=== PATIENT | male | born 1940 | race Caucasian/White ===

== ENCOUNTER 2017-10-22 12:48 | Inpatient (IN) | payer MEDICARE ==
[~2017-10-22 12:48] MED LIST: ISOVUE-370 76%-LOCM 1 ML ONE
[2017-10-22 13:23] LABS: #Eosinphils 0.2 thou/uL (0.0-0.7); #Lymphocytes 0.8 thou/uL (1.20-3.40); #Monocytes 0.4 thou/uL (0.11-0.59); #Neutrophils 5.2 thou/uL (1.40-6.50); %Basophils 0.2 % (0.0-1.0); %Eosinophils 2.9 % (0.0-10.0); %Lymphocytes 12.6 % (21.0-51.0); %Monocytes 5.7 % (0.0-10.0); Hematocrit 41.1 % (42.0-52.0); Mean Platelet Volume 7.8 fL (7.4-10.4); Red Blood Cell (RBC) Count 4.26 mill/uL (4.70-6.10); White Blood Cell (WBC) Count 6.6 thou/uL (4.8-10.8)
[2017-10-22 13:46] LABS: ALT (SGPT) 13 U/L (8-55); AST (SGOT) 14 U/L (5-34); Alkaline Phosphatase 58 U/L (40-150); Anion Gap 11 mmol/L (10-20); BUN (Urea Nitrogen) 13 mg/dL (8.4-25.7); Bilirubin, Total 0.7 mg/dL (0.2-1.2); Calc. Creatinine Clearance 0 mL/min (70-130); Calcium 9.5 mg/dL (7.8-10.44); Carbon Dioxide 29 mmol/L (23-31); Chloride 105 mmol/L (98-107); Estimated GFR-MDRD 55; Globulin 2.8 g/dL (2.4-3.5); Protein, Total 7.1 g/dL (5.8-8.1)
[2017-10-22 13:47] LABS: Troponin I 0.022 ng/mL (< 0.028)
--- NOTE | 2017-10-22 15:05 | CT ---
CT CHEST WITH CONTRAST: HISTORY: COPD, dyspnea. COMPARISON: Chest radiograph same day. FINDINGS: Left lung apex has a soft tissue density with associated soft tissue calcification involving the pleu ra. There appears to be some invasion within the extrapleural fat. Overall, this mass-like area ly sures 5 x 2.6 x 2.4 cm. In the right lung base abutting a calcified pleural plaque is an enhancing m ass extending to the hilum. This measures 2.2 x 1.9 x approximately 10 cm and extends into the poste rior and medial basal right lower lobe bronchi. There are severe emphysematous changes. There are s cattered calcified pleural plaques throughout the pleural spaces. Cholelithiasis is present. Calcified splenic granulomas. Calcified granulomas of the hilum. No pericardial effusion. IMPRESSION: 1. There is a 2.2 x 2 x 10 cm mass which is elongated in the craniocaudad plane abutting a calcified pleural plaque in the right lower lobe. This extends into the right lower lobe, processing lead and medial b braxton segments. This is concerning for a malignant process such as mesothelioma. 2. Confluent soft tissue mass in the left lung apex measuring 5 x 2.6 x 2.4 cm invading into the ext rapleural fat also concerning for malignancy. 3. Focal spiculated mass within the anterior segment left upper lobe relating to mediastinal pleura measuring 1.6 x 1.4 x 2 cm also concerning for malignancy versus scar. A PET CT would be beneficial in this patient. There are areas of scarring throughout both lower lobes. 4. Cholelithiasis. 5. Calcified splenic granulomas. 6. Asbestos-related pleural disease. CODE T POS: DANIEL
[2017-10-22] MEDS ORDERED: Water For Inject, Bacteriostat 30 ML ONE (15:08)
[2017-10-22] MEDS ORDERED: methylPREDNISolone Sod Succ/PF 125 MG/2 ML VIAL ONE (15:08)
[2017-10-22 16:17] LABS: Troponin I 0.014 ng/mL (< 0.028)
[2017-10-22] MEDS ORDERED: Acetaminophen 325 MG TAB PO PRN ×2 (17:01→17:06)
[2017-10-22] MEDS ORDERED: HYDROcodone/Acetaminophen 5/325 mg Tablet PO PRN ×3 (17:01→17:06)
[2017-10-22] MEDS ORDERED: hydrALAZINE 20 MG/ML VIAL SLOW IVP PRN (17:06)
[2017-10-22] MEDS ORDERED: Ondansetron HCl/PF 4 MG/2 ML Vial IVP PRN (17:06)
[2017-10-22] MEDS ORDERED: HumaLOG 300 UNITS/3 ML VIAL SC PRN ×2 (17:06)
[2017-10-22] MEDS ORDERED: Dextrose 50% Abboject 50 ML SYRINGE SLOW IVP PRN (17:06)
[2017-10-22] MEDS ORDERED: Benzonatate 100 MG CAP PO PRN (17:06)
[2017-10-22] MEDS ORDERED: Dextrose 5% in Water 1,000 ML IV PRN (17:06)
[2017-10-22 17:09] VITALS: BMI 21.0
[2017-10-22] MEDS: Piperacillin/Tazobactam 3.375 GM in Sodium Chloride 0.9% 100 ML IVPB SCH ×2 (18:35→23:55)
[2017-10-22] MEDS: Albuterol Sulfate 2.5 mg/3 ml Neb NEB SCH ×2 (19:14→22:40)
--- NOTE | 2017-10-22 19:46 | HP ---
PRIMARY CARE PHYSICIAN: Dr. Raines. CHIEF COMPLAINT: Shortness of breath. HISTORY OF PRESENT ILLNESS: Mr. Quick is a very pleasant 76-year-old gentleman, who has a hist ory of chronic respiratory failure with chronic obstructive pulmonary disease. He also has a history of asbestosis, which he says was diagnosed at least since back in 2001. He says he was in his usual state of health until about 2 months ago. He says that he is originally from [place] and he was having increasing shortness of breath and please note he says he normally has some degree of shortnes s of breath all the time, but this time the shortness of breath got extremely bad and he went to the [facility] in [place] where he was diagnosed with pneumonia. He was treated with Leva stephanie and says that he stayed in the hospital several days and then was eventually transitioned to an inpatient rehab center and then back home. He says his symptoms did improve somewhat and he was able to walk some. His cousin who is at the bedside decided to bring him home with her as he is single a nd to take better care of him and has since relocated him in our area. She noticed that in the past few days, he has been becoming increasingly more short of breath and today he was getting ready to tafoya ve a regular appointment with Dr. Raines when he was barely able to dress himself, he said he put one foot in his jeans and was extremely short of breath and had to take a rest and then put the other fo ot in and was in short of breath. He barely could make it to the office. When he arrived, Dr. Ej zepeda looked at him and said that he needed to come to the emergency room. In the ER, he was evaluated a nd he had a CT scan of his chest obtained as well as a chest x-ray and it was noted that he has a mas s in the left upper lobe as well as some areas abutting the extrapleural fat, which was concerning fo r malignancy. There was also an elongated area on the right lower lobe as well and some asbestosis r elated pleural disease. The patient says that he was aware of some area in the left upper lobe, but says that they had been "following this for sometime." He says he believes it has been for the past 4 years. When asked if it ever had been biopsied, he says no. When asked if it was cancer, the lin ent says he was not sure, he says "they never told me anything about it" and says that he has been tr yadira to request the records from [place], but has not received them yet. The other complaint is t hat he noticed some pain in his left upper shoulder and into his neck and again occasional cough, whi ch is primarily nonproductive as well as the extreme weakness. REVIEW OF SYSTEMS: Constitutional: He has had some chills, but no fever. He says his appetite has been fairly good. When asked about his weight, he says his weight goes "up and down." HEENT: He de nies any headache, no dizziness, no visual changes, no sore throat, no rhinorrhea, no neck pain, no a denopathy. Pulmonary: As the history of present illness. Cardiovascular: He denies any chest pain . He says he has a history of irregular heartbeat and was recently placed on a new "blood thinner" f or this. No PND, no orthopnea. He has noted some lower extremity edema. Gastrointestinal: No abdo larry pain, no nausea, no vomiting, no change in bowels. Genitourinary: He does have some urinary f requency. He is on Flomax for this. Musculoskeletal: He does complain of some joint pains primaril y in his knees, etc. No muscle weakness. Skin/Integument: No skin changes and no rash. Psychiatri c: No symptoms of anxiety or depression. PAST MEDICAL HISTORY: Significant for chronic respiratory failure secondary to chronic obstructive p ulmonary disease; history of asbestosis; BPH; chronic anemia; diabetes mellitus, type 2, which he say s is diet controlled; as well as atrial fibrillation. PAST SURGICAL HISTORY: Negative. ALLERGIES: NEXIUM, which causes itching; WASP and BEE STINGS as well as NIACIN. SOCIAL HISTORY: He is . He has 1 biological child and he says he has sinus in his 50s, but he says he has since disowned his child and does not claim his child anymore. He says that his surro gate decision maker is his cousin and her name is Ladonna Rojas. He is . He is a former s moker. He quit a year and a half ago and he smoked for over 50 years for a pack and a half a day. Olivia lynch denies any alcohol use. FAMILY HISTORY: Significant for liver cancer in his mother. Father has coronary artery disease. Br other had liver failure. CURRENT MEDICATIONS: Include aspirin 325 mg daily, digoxin 0.125 mg daily, furosemide 20 mg daily, p otassium chloride 10 mEq a day, metoprolol 25 mg daily, pravastatin 40 mg daily, Flomax 0.4 mg daily, Advair 250/50 one inhalation daily, Combivent inhaler, Spiriva, Flonase nasal spray and albuterol ne bs. He says he is on a blood thinner, he calls sabrina, but I suspect it might be Xarelto. He does get his prescriptions at [facility] pharmacy and we will call to clarify this. PHYSICAL EXAMINATION: GENERAL: He is alert and oriented. He appears to be in no acute distress. VITAL SIGNS: Stable. HEENT: Pupils are equal, round, and reactive. Extraocular muscles are intact. His sclerae are anic teric. Throat: There is no erythema, no exudates. He is edentulous. No oral lesions. NECK: There is no adenopathy, no bruits. LUNGS: He has got some scattered wheezing, but no rales and some decrease in air movement. CARDIOVASCULAR: He has a normal S1 and S2. No S3 or S4. No murmurs, clicks, no rubs. ABDOMEN: Soft, it is nontender, nondistended. Positive for bowel sounds. No rebound, no guarding. EXTREMITIES: There is no edema. NEUROLOGICALLY: The exam is nonfocal. LABORATORY DATA AND X-RAYS: White blood cell count 6.6, hemoglobin 13.9, hematocrit is 41.1, platele t count is 175. Sodium 141, potassium 3.8, chloride is 105, CO2 is 29, BUN of 13, creatinine 1.28, g lucose is 102, natriuretic peptide 246. He had a chest x-ray that had some changes associated with c hronic obstructive pulmonary disease, some pleural thickening and thickening of the fissures, some tafoya zy opacity in the left upper lobe and this is by my reading. He also had a CT scan of the chest, [facility] demonstrated a left lung apex as a soft tissue density associated with some tissue calcifications along the pleura, this is a mass-like area, measuring 5.25 x 2.6 x 2.4 cm, an area in the right base with the pleural plaque enhancing mass. There is some calcified splenic granuloma and asbestosis rel ated pleural disease. ASSESSMENT AND PLAN: 1. This is a 76-year-old gentleman who presents to the emergency room with progressive shortness of breath. He has a history of COPD, which appears to be fairly advanced. He has been having worsening pulmonary symptoms. I suspect he has a pulmonary malignancy. It is unclear whether or not this has been evaluated in the past, appears that he has not had any specific treatment. According to the adams gonzalez's description; however, this needs to be further clarified. He will be admitted. We will scott t this as a post-obstructive pneumonia and place him on empiric antibiotics. Pulmonary consult will be obtained. We will also make a request to get his records from the [facility] in [facility] [place]: 2. History of atrial fibrillation. We also need to clarify the blood thinner the patient is taking, again I suspect this is Xarelto and restart this as well as his medication for rate control includin g the metoprolol and digoxin. 3. Chronic obstructive pulmonary disease. We will continue his usual medications including Advair, Spiriva, and Combivent and place him on p.r.n. DuoNeb. 4. For diabetes mellitus, we will place him on a sliding scale insulin.
[2017-10-22] MEDS: Aspirin 325 MG TAB PO SCH (20:36)
[2017-10-22] MEDS: Docusate 100 MG CAP PO SCH (20:37)
[2017-10-22] MEDS: Famotidine 20 MG TAB PO SCH (20:37)
[2017-10-22] MEDS: Pravastatin Sodium 40 MG TAB PO SCH (20:37)
[2017-10-22] MEDS: Rivaroxaban 10 MG TAB PO SCH (20:38)
[2017-10-23] MEDS: Albuterol Sulfate 2.5 mg/3 ml Neb NEB SCH (02:18)
[2017-10-23 04:24] LABS: #Lymphocytes 0.3 thou/uL (1.20-3.40); #Monocytes 0.1 thou/uL (0.11-0.59); #Neutrophils 6.5 thou/uL (1.40-6.50); %Basophils 0.7 % (0.0-1.0); %Eosinophils 0.2 % (0.0-10.0); %Lymphocytes 4.2 % (21.0-51.0); %Monocytes 1.7 % (0.0-10.0); Hematocrit 37.1 % (42.0-52.0); Mean Platelet Volume 7.7 fL (7.4-10.4); Red Blood Cell (RBC) Count 3.83 mill/uL (4.70-6.10); White Blood Cell (WBC) Count 6.9 thou/uL (4.8-10.8)
[2017-10-23 04:49] LABS: Anion Gap 16 mmol/L (10-20); BUN (Urea Nitrogen) 19 mg/dL (8.4-25.7); Calc. Creatinine Clearance 37 mL/min (70-130); Calcium 9.3 mg/dL (7.8-10.44); Carbon Dioxide 24 mmol/L (23-31); Chloride 105 mmol/L (98-107); Estimated GFR-MDRD 43
[2017-10-23] MEDS: Piperacillin/Tazobactam 3.375 GM in Sodium Chloride 0.9% 100 ML IVPB SCH ×3 (05:46→17:55)
[2017-10-23] MEDS: Mometasone/Formoterol 120 PUFF INHALER INH SCH (06:27)
[2017-10-23] MEDS ORDERED: Spiriva 18 MCG CAP (Box of 5 Caps) INH SCH (07:00)
[2017-10-23] MEDS: Famotidine 20 MG TAB PO SCH ×2 (08:26→20:51)
[2017-10-23] MEDS: Digoxin 0.125 MG TAB PO SCH (08:26)
[2017-10-23] MEDS: Potassium Chloride 10 MEQ TAB PO SCH (08:26)
[2017-10-23] MEDS: Docusate 100 MG CAP PO SCH ×2 (08:26→20:50)
[2017-10-23] MEDS: Furosemide 20 MG TAB PO SCH (08:26)
[2017-10-23] MEDS: Metoprolol Tartrate 25 MG TAB PO SCH (08:26)
[2017-10-23] MEDS: Tamsulosin HCl 0.4 MG CAP PO SCH (08:26)
--- NOTE | 2017-10-23 09:30 | PDOC.PN ---
- Subjective Encounter Start Date: 10/23/17 Encounter Start Time: 09:27 Mr. Quick was seen today in follow-up. He says he is breathing a little better. He walked across the room today. He continues to have pain in his left upper chest. - Objective Resuscitation Status: Resuscitation Status DNR:Do Not Resuscitate MAR Reviewed: Yes Vital Signs & Weight: Vital Signs (12 hours) Temp Pulse Resp BP Pulse Ox 10/23/17 08:26 88 10/23/17 08:00 97.8 F 88 20 98 10/23/17 07:05 97.8 F 101 H 20 105/56 L 98 10/23/17 06:25 82 16 98 10/23/17 03:53 97.7 F 94 16 105/55 L 95 10/23/17 02:17 88 16 99 10/22/17 23:53 97.7 F 95 20 107/59 L 92 L 10/22/17 22:40 84 16 98 Weight Weight 138 lb 11.2 oz I&O: 10/22/17 10/23/17 10/24/17 06:59 06:59 06:59 Intake Total 200 Output Total 350 Balance -150 Result Diagrams: 10/23/17 03:30 10/23/17 03:30 Additional Labs: Accuchecks 10/23/17 10/22/17 05:31 20:07 POC Glucose 194 H 217 H Phys Exam - Physical Examination HEENT: PERRLA Respiratory: no wheezing, no rales, no rhonchi, clear to auscultation bilateral Cardiovascular: RRR, no significant murmur Gastrointestinal: soft, non-tender, positive bowel sounds Musculoskeletal: no edema Dx/Plan (1) Lung mass Code(s): R91.8 - OTHER NONSPECIFIC ABNORMAL FINDING OF LUNG FIELD Status: Acute (2) Pulmonary asbestosis Code(s): J61 - PNEUMOCONIOSIS DUE TO ASBESTOS AND OTHER MINERAL FIBERS Status : Acute (3) Acute and chronic respiratory failure Code(s): J96.20 - ACUTE AND CHR RESP FAILURE, UNSP W HYPOXIA OR HYPERCAPNIA Status: Acute (4) Diabetes mellitus type 2 in nonobese Code(s): E11.9 - TYPE 2 DIABETES MELLITUS WITHOUT COMPLICATIONS Status: Acute (5) Atrial fibrillation Code(s): I48.91 - UNSPECIFIED ATRIAL FIBRILLATION Status: Acute - Plan * acute on chronic respiratory failure- improved overnight- ? superimposed pneumonia- await Pulmonary evaluation * Records from [facility] in [place] have been requested * DM- blood glucose is trending up- continue SSI * AFIB- his heart rate has been stable- continue Xarelto for CVA prevention.
[2017-10-23] MEDS: Aspirin 325 MG TAB PO SCH (20:50)
[2017-10-23] MEDS: predniSONE 20 MG TAB PO SCH (20:51)
[2017-10-23] MEDS: Rivaroxaban 10 MG TAB PO SCH (20:51)
[2017-10-23] MEDS: Pravastatin Sodium 40 MG TAB PO SCH (20:51)
--- NOTE | 2017-10-23 21:44 | CON ---
DATE OF CONSULTATION: 10/23/2017 HISTORY OF PRESENT ILLNESS: Dwayne Quick is a 76-year-old pleasant gentleman who wa s admitted to the hospital with shortness of breath. Longstanding history of tobacco abuse, smoked up to a pack a day for at least 50 years. He sees a [facility] physician over here with a diagnosis of COPD and apparently coronary artery disease. He says now on most days he can barely walk even half a block without getting markedly short of breat h, history of previous pneumonia with no history of TB or asthma. He saw some physician in [facility] where he said he had pneumonia. PAST MEDICAL HISTORY: Pertinent for COPD, coronary artery disease, history of asbestos exposure, and diabetes. MEDICATIONS: His list of medicines Spiriva, Flonase, Ventolin, metoprolol 25, Combivent, Flomax 0.4, potassium, Xarelto, Lasix and digoxin. 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 PAST SURGICAL HISTORY: None. ALLERGIES: Presumably NEXIUM. REVIEW OF SYSTEMS: Otherwise, 10-point negative. PHYSICAL EXAMINATION: VITAL SIGNS: Blood pressure 105/58, sats 93%, temperature 97, respirations 18. CHEST: Decreased breath sounds, no wheezing. CARDIAC: Normal S1-S2. No gallops. ABDOMEN: No masses. LABORATORY: White count 6, H and H 12 and 37, platelet count normal. Creatinine 1.57. BNP 247. In fluenza negative. LABORATORY AND X-RAY FINDINGS: I reviewed his chest x-ray which shows a right apical thickening. No nspecific infiltrates in the area of the lingula and some hyperinflation and questionable nodule in t he right base. CAT scan confirmed the above findings, more pronounced on the CT which shows: 1. A 2 x 2 x 10 cm mass along the right lower lobe calcified plaque. 2. Soft tissue mass lung apex 5 x 2.6 extrapleural. 3. A 1.6 x 1.4 mass on the left upper lobe. IMPRESSION: 1. Chronic obstructive pulmonary disease exacerbation. 2. Abnormal CT suggestive of multiple lung masses and pleural thickening. 3. Coronary artery disease. 4. Atrial fibrillation. PLAN: At this stage, nebs, steroids when he is better, discharge home, outpatient followup with a PE T scan. Further recommendations after above. Please note this is a 70-minute time spent with the patient at bedside.
[2017-10-24] MEDS: Piperacillin/Tazobactam 3.375 GM in Sodium Chloride 0.9% 100 ML IVPB SCH ×3 (00:18→12:00)
[2017-10-24 04:36] LABS: Hematocrit 36.7 % (42.0-52.0)
[2017-10-24] MEDS: Mometasone/Formoterol 120 PUFF INHALER INH SCH (06:36)
[2017-10-24] MEDS: predniSONE 20 MG TAB PO SCH ×2 (10:05→20:15)
[2017-10-24] MEDS: Famotidine 20 MG TAB PO SCH ×2 (10:05→20:15)
[2017-10-24] MEDS: Digoxin 0.125 MG TAB PO SCH (10:05)
[2017-10-24] MEDS: Metoprolol Tartrate 25 MG TAB PO SCH (10:06)
[2017-10-24] MEDS: Potassium Chloride 10 MEQ TAB PO SCH (10:06)
[2017-10-24] MEDS: Docusate 100 MG CAP PO SCH ×2 (10:06→20:15)
[2017-10-24] MEDS: Furosemide 20 MG TAB PO SCH (10:06)
[2017-10-24] MEDS: Tamsulosin HCl 0.4 MG CAP PO SCH (10:06)
--- NOTE | 2017-10-24 10:26 | PDOC.PN ---
- Subjective Encounter Start Date: 10/24/17 Encounter Start Time: 10:00 Subjective: breathing better, still exertional sob+ - Objective Resuscitation Status: Resuscitation Status DNR:Do Not Resuscitate MAR Reviewed: Yes Vital Signs & Weight: Vital Signs (12 hours) Temp Pulse Resp BP Pulse Ox 10/24/17 10:05 66 10/24/17 08:03 97.3 F L 66 14 113/59 L 98 10/24/17 08:00 97.3 F L 66 14 98 10/24/17 06:34 82 16 96 10/24/17 01:27 95 10/23/17 23:05 84 16 96 Weight Weight 138 lb 11.2 oz I&O: 10/23/17 10/24/17 10/25/17 06:59 06:59 06:59 Intake Total 200 1440 Output Total 350 1600 Balance -150 -160 Result Diagrams: 10/24/17 03:34 10/24/17 03:34 Additional Labs: Accuchecks 10/24/17 10/23/17 10/23/17 05:27 20:54 16:12 POC Glucose 137 H 135 H 114 H 10/23/17 11:52 POC Glucose 97 Phys Exam - Physical Examination HEENT: PERRLA, moist MMs Neck: no JVD, supple Respiratory: no wheezing, no rales Cardiovascular: RRR, no significant murmur Gastrointestinal: soft, non-tender, positive bowel sounds Musculoskeletal: no edema, pulses present Neurological: non-focal, moves all 4 limbs Psychiatric: A&O x 3 Dx/Plan (1) COPD (chronic obstructive pulmonary disease) Status: Acute Qualifiers: COPD type: COPD with acute exacerbation Qualified Code(s): J44.1 - Chronic obstructive pulmonary disease with (acute) exacerbation (2) Acute and chronic respiratory failure Code(s): J96.20 - ACUTE AND CHR RESP FAILURE, UNSP W HYPOXIA OR HYPERCAPNIA Status: Acute Qualifiers: Respiratory failure complication: hypoxia Qualified Code(s): J96.21 - Acute and chronic respiratory failure with hypoxia (3) Dyslipidemia Code(s): E78.5 - HYPERLIPIDEMIA, UNSPECIFIED Status: Chronic (4) CAD (coronary artery disease) Code(s): I25.10 - ATHSCL HEART DISEASE OF [place] CORONARY ARTERY W/O ANG PCTRS Status: Chronic Qualifiers: Coronary Disease-Associated Artery/Lesion type: [place] artery [place] vs. transplanted heart: [place] heart Associated angina: without angina Qualified Code(s): I25.10 - Atherosclerotic heart disease of [place] coronary artery without angina pectoris (5) Atrial fibrillation Code(s): I48.91 - UNSPECIFIED ATRIAL FIBRILLATION Status: Chronic Qualifiers: Atrial fibrillation type: chronic Qualified Code(s): I48.2 - Chronic atrial fibrillation (6) Diabetes mellitus type 2 in nonobese Code(s): E11.9 - TYPE 2 DIABETES MELLITUS WITHOUT COMPLICATIONS Status: Chronic (7) Lung mass Code(s): R91.8 - OTHER NONSPECIFIC ABNORMAL FINDING OF LUNG FIELD Status: Acute (8) Pulmonary asbestosis Code(s): J61 - PNEUMOCONIOSIS DUE TO ASBESTOS AND OTHER MINERAL FIBERS Status : Chronic - Plan on zosyn -: oral steroids, duonebs -: xarelto for afib -: PT to mobilize pt as tolerated -: dm on diet control * . Review of Systems - Medications/Allergies Allergies/Adverse Reactions: Allergies Allergy/AdvReac Type Severity Reaction Status Date / Time bee pollen Allergy Verified 10/22/17 17:20 esomeprazole [From Nexium] Allergy Verified 10/22/17 17:19 niacin Allergy Verified 10/22/17 17:19 Medications: Current Medications Acetaminophen (Tylenol) 650 mg PO Q4H PRN PRN Reason: Headache/Fever or Pain Hydrocodone Bitart/Acetaminophen (Cozad 5/325) 1 tab PO Q4H PRN PRN Reason: Moderate Pain (4-6) Albuterol/Ipratropium (Duoneb) 3 ml NEB [id number]-IH PRN PRN Reason: SOB &/or Wheezing Last Admin: 10/23/17 02:17 Dose: 3 ml Albuterol/Ipratropium (Duoneb) 3 ml NEB [id number] NEHEMIAH Last Admin: 10/24/17 06:34 Dose: 3 ml Aspirin (Aspirin) 325 mg PO HS NEHEMIAH Last Admin: 10/23/17 20:50 Dose: 325 mg Benzonatate (Tessalon) 100 mg PO Q4H PRN PRN Reason: Cough Dextrose/Water (Dextrose 50%) 25 gm SLOW IVP PRN PRN PRN Reason: Hypoglycemia Digoxin (Lanoxin) 0.125 mg PO DAILY [facility] Last Admin: 10/24/17 10:05 Dose: 0.125 mg Docusate Sodium (Colace) 100 mg PO BID [facility] Last Admin: 10/24/17 10:06 Dose: 100 mg Famotidine (Pepcid) 20 mg PO BID [facility] Last Admin: 10/24/17 10:05 Dose: 20 mg Furosemide (Lasix) 20 mg PO DAILY [facility] Last Admin: 10/24/17 10:06 Dose: 20 mg Glucagon (Glucagon) 1 mg IM PRN PRN PRN Reason: Hypoglycemia Hydralazine HCl (Apresoline) 10 mg SLOW IVP Q4H PRN PRN Reason: Systolic BP > 180 Dextrose/Water (D5w) 1,000 mls @ 0 mls/hr IV .Q0M PRN; As Directed PRN Reason: Hypoglycemia Piperacillin Sod/Tazobactam (Sod 3.375 gm/ Sodium Chloride) 100 mls @ 200 mls/ hr IVPB Q6HR [facility] Last Admin: 10/24/17 05:22 Dose: 100 mls Insulin Human Lispro (Humalog) 0 units SC .MILD SLIDING SCALE PRN PRN Reason: Mild Correctional Scale Last Admin: 10/23/17 06:39 Dose: 2 unit Insulin Human Lispro (Humalog) 0 units SC .BEDTIME SLIDING SC PRN PRN Reason: Bedtime Correctional Scale Last Admin: 10/22/17 20:49 Dose: 2 unit Metoprolol Succinate (Toprol Xl) 25 mg PO DAILY [facility] Last Admin: 10/24/17 10:06 Dose: Not Given Metoprolol Tartrate (Lopressor) 25 mg PO DAILY [facility] Last Admin: 10/24/17 10:06 Dose: 25 mg Mometasone Furoate/Formoterol Fumar (Dulera 200 Mcg/5 Mcg Inhaler) 2 puff INH DAILY-RT [facility] Last Admin: 10/24/17 06:36 Dose: 2 puff Ondansetron HCl (Zofran) 4 mg IVP Q6H PRN PRN Reason: Nausea/Vomiting Potassium Chloride (Klor-Con 10) 10 meq PO DAILY [facility] Last Admin: 10/24/17 10:06 Dose: 10 meq Pravastatin Sodium (Pravachol) 40 mg PO HS [facility] Last Admin: 10/23/17 20:51 Dose: 40 mg Prednisone (Prednisone) 20 mg PO BID NEHEMIAH Last Admin: 10/24/17 10:05 Dose: 20 mg Rivaroxaban (Xarelto) 20 mg PO QPM NEHEMIAH Last Admin: 10/23/17 20:51 Dose: 20 mg Tamsulosin HCl (Flomax) 0.4 mg PO DAILY [facility] Last Admin: 10/24/17 10:06 Dose: 0.4 mg
--- NOTE | 2017-10-24 17:20 | PRG ---
DATE OF SERVICE: 10/24/2017 SUBJECTIVE: Mr. Quick is seen in the room with his brother. His brother is a picker/puller. The patient says he is much better than he was a few days ago. OBJECTIVE: VITAL SIGNS: He is afebrile, heart rate is 66, respiratory rate is 14, oximetry is 98 on 3 liters, b lood pressure 113/59, intake and output is recorded as negative 160 mL. LUNGS: Remarkable for crackles at his lung bases. He is no longer wheezing. HEART: Regular rhythm. ABDOMEN: Soft. LABORATORY DATA: Hemoglobin is 12.2; it was 12.4 yesterday. Creatinine is 1.5 today; it was 1.57 ye sterday. IMPRESSION: 1. Chronic obstructive pulmonary disease exacerbation. 2. ?coexistent pneumonia. 3. ?pulmonary nodule. The CT showed a 2 x 2 x 10 cm mass abutting calcified pleural plaque in the right lower lobe. Dr. Boyer in informed me it would be worked up as an outpatient. He also had a mass in the anterior segment of the left upper lobe; this could be a scar. He appears to be medically stable at this point in time. Hopefully, we can start to simplify medicat ions and get him home by Sweet.
[2017-10-24] MEDS: Pravastatin Sodium 40 MG TAB PO SCH (20:15)
[2017-10-24] MEDS: Amoxicillin/Potassium Clav 875 MG TAB PO SCH (20:15)
[2017-10-24] MEDS: Aspirin 325 MG TAB PO SCH (20:15)
[2017-10-24] MEDS: Rivaroxaban 10 MG TAB PO SCH (20:19)
[2017-10-25] MEDS: Mometasone/Formoterol 120 PUFF INHALER INH SCH (06:44)
[2017-10-25 07:49] VITALS: TEMP 97.6
[2017-10-25] MEDS: Tamsulosin HCl 0.4 MG CAP PO SCH (07:49)
[2017-10-25] MEDS: Potassium Chloride 10 MEQ TAB PO SCH (07:50)
[2017-10-25] MEDS: Furosemide 20 MG TAB PO SCH (07:50)
[2017-10-25] MEDS: Amoxicillin/Potassium Clav 875 MG TAB PO SCH (07:50)
[2017-10-25] MEDS: Famotidine 20 MG TAB PO SCH (07:50)
[2017-10-25] MEDS: predniSONE 20 MG TAB PO SCH (07:50)
[2017-10-25] MEDS: Docusate 100 MG CAP PO SCH (07:50)
[2017-10-25] MEDS: Digoxin 0.125 MG TAB PO SCH (07:51)
--- NOTE | 2017-10-25 11:33 | PDOC.PN ---
- Subjective Encounter Start Date: 10/25/17 Encounter Start Time: 08:00 Subjective: no sob, feels better, says he is amb in room and hallway - Objective Resuscitation Status: Resuscitation Status DNR:Do Not Resuscitate MAR Reviewed: Yes Vital Signs & Weight: Vital Signs (12 hours) Temp Pulse Resp BP Pulse Ox 10/25/17 08:03 97.6 F 62 18 99 10/25/17 07:51 62 10/25/17 07:48 97.6 F 61 18 124/59 L 99 10/25/17 06:45 100 10/25/17 06:43 60 16 100 10/25/17 04:22 98.2 F 72 18 115/56 L 100 10/24/17 23:48 97.5 F L 67 20 94/53 L 96 Weight Weight 138 lb 11.2 oz I&O: 10/24/17 10/25/17 10/26/17 06:59 06:59 06:59 Intake Total 1440 1300 Output Total 1600 2000 Balance -160 -700 Result Diagrams: 10/24/17 03:34 10/24/17 03:34 Additional Labs: Accuchecks 10/25/17 10/24/17 10/24/17 05:54 20:22 15:47 POC Glucose 153 H 151 H 149 H Phys Exam - Physical Examination HEENT: PERRLA, moist MMs Neck: no JVD, supple Respiratory: no wheezing, no rales occ rhonchi+ Cardiovascular: RRR, no significant murmur Gastrointestinal: soft, non-tender, positive bowel sounds Musculoskeletal: no edema, pulses present Neurological: non-focal, moves all 4 limbs Psychiatric: A&O x 3 Dx/Plan (1) COPD (chronic obstructive pulmonary disease) Status: Acute Qualifiers: COPD type: COPD with acute exacerbation Qualified Code(s): J44.1 - Chronic obstructive pulmonary disease with (acute) exacerbation (2) Acute and chronic respiratory failure Code(s): J96.20 - ACUTE AND CHR RESP FAILURE, UNSP W HYPOXIA OR HYPERCAPNIA Status: Resolved Qualifiers: Respiratory failure complication: hypoxia Qualified Code(s): J96.21 - Acute and chronic respiratory failure with hypoxia Comment: on nasal canula (3) Dyslipidemia Code(s): E78.5 - HYPERLIPIDEMIA, UNSPECIFIED Status: Chronic (4) CAD (coronary artery disease) Code(s): I25.10 - ATHSCL HEART DISEASE OF [place] CORONARY ARTERY W/O ANG PCTRS Status: Chronic Qualifiers: Coronary Disease-Associated Artery/Lesion type: [place] artery [place] vs. transplanted heart: [place] heart Associated angina: without angina Qualified Code(s): I25.10 - Atherosclerotic heart disease of [place] coronary artery without angina pectoris (5) Atrial fibrillation Code(s): I48.91 - UNSPECIFIED ATRIAL FIBRILLATION Status: Chronic Qualifiers: Atrial fibrillation type: chronic Qualified Code(s): I48.2 - Chronic atrial fibrillation (6) Diabetes mellitus type 2 in nonobese Code(s): E11.9 - TYPE 2 DIABETES MELLITUS WITHOUT COMPLICATIONS Status: Chronic (7) Lung mass Code(s): R91.8 - OTHER NONSPECIFIC ABNORMAL FINDING OF LUNG FIELD Status: Acute (8) Pulmonary asbestosis Code(s): J61 - PNEUMOCONIOSIS DUE TO ASBESTOS AND OTHER MINERAL FIBERS Status : Chronic - Plan outpt w/u of lung mass/asbestosis with -: may dc home with if his cousin is ready to pick him up -: on prednisone taper and augmentin -: has home oxygen -: is on xarelto for afib * . Review of Systems - Medications/Allergies Allergies/Adverse Reactions: Allergies Allergy/AdvReac Type Severity Reaction Status Date / Time bee pollen Allergy Verified 10/22/17 17:20 esomeprazole [From Nexium] Allergy Verified 10/22/17 17:19 niacin Allergy Verified 10/22/17 17:19 Medications: Current Medications Acetaminophen (Tylenol) 650 mg PO Q4H PRN PRN Reason: Headache/Fever or Pain Hydrocodone Bitart/Acetaminophen ([place] 5/325) 1 tab PO Q4H PRN PRN Reason: Moderate Pain (4-6) Albuterol/Ipratropium (Duoneb) 3 ml NEB [id number] PRN PRN Reason: SOB &/or Wheezing Last Admin: 10/23/17 02:17 Dose: 3 ml Albuterol/Ipratropium (Duoneb) 3 ml NEB I1IL-II NEHEMIAH Last Admin: 10/25/17 06:43 Dose: 3 ml Amoxicillin/Clavulanate Potassium (Augmentin) 875 mg PO Q12HR NEHEMIAH Last Admin: 10/25/17 07:50 Dose: 875 mg Aspirin (Aspirin) 325 mg PO HS [facility] Last Admin: 10/24/17 20:15 Dose: 325 mg Benzonatate (Tessalon) 100 mg PO Q4H PRN PRN Reason: Cough Dextrose/Water (Dextrose 50%) 25 gm SLOW IVP PRN PRN PRN Reason: Hypoglycemia Digoxin (Lanoxin) 0.125 mg PO DAILY [facility] Last Admin: 10/25/17 07:51 Dose: 0.125 mg Docusate Sodium (Colace) 100 mg PO BID [facility] Last Admin: 10/25/17 07:50 Dose: 100 mg Famotidine (Pepcid) 20 mg PO BID [facility] Last Admin: 10/25/17 07:50 Dose: 20 mg Furosemide (Lasix) 20 mg PO DAILY [facility] Last Admin: 10/25/17 07:50 Dose: 20 mg Glucagon (Glucagon) 1 mg IM PRN PRN PRN Reason: Hypoglycemia Hydralazine HCl (Apresoline) 10 mg SLOW IVP Q4H PRN PRN Reason: Systolic BP > 180 Dextrose/Water (D5w) 1,000 mls @ 0 mls/hr IV .Q0M PRN; As Directed PRN Reason: Hypoglycemia Insulin Human Lispro (Humalog) 0 units SC .MILD SLIDING SCALE PRN PRN Reason: Mild Correctional Scale Last Admin: 10/23/17 06:39 Dose: 2 unit Insulin Human Lispro (Humalog) 0 units SC .BEDTIME SLIDING SC PRN PRN Reason: Bedtime Correctional Scale Last Admin: 10/22/17 20:49 Dose: 2 unit Metoprolol Succinate (Toprol Xl) 25 mg PO DAILY [facility] Last Admin: 10/25/17 07:51 Dose: 25 mg Mometasone Furoate/Formoterol Fumar (Dulera 200 Mcg/5 Mcg Inhaler) 2 puff INH DAILY-RT [facility] Last Admin: 10/25/17 06:44 Dose: 2 puff Ondansetron HCl (Zofran) 4 mg IVP Q6H PRN PRN Reason: Nausea/Vomiting Potassium Chloride (Klor-Con 10) 10 meq PO DAILY [facility] Last Admin: 10/25/17 07:50 Dose: 10 meq Pravastatin Sodium (Pravachol) 40 mg PO HS [facility] Last Admin: 10/24/17 20:15 Dose: 40 mg Prednisone (Prednisone) 20 mg PO BID [facility] Last Admin: 10/25/17 07:50 Dose: 20 mg Rivaroxaban (Xarelto) 20 mg PO QPM [facility] Last Admin: 10/24/17 20:19 Dose: 20 mg Tamsulosin HCl (Flomax) 0.4 mg PO DAILY [facility] Last Admin: 10/25/17 07:49 Dose: 0.4 mg
[2017-10-25 13:22] VITALS: BP 107/59
--- NOTE | 2017-10-25 17:02 | PRG ---
DATE OF SERVICE: 10/25/2017 SUBJECTIVE: Mr. Quick did well overnight. OBJECTIVE: VITAL SIGNS: His blood pressure is 107/59 this afternoon. He is afebrile, heart rate 72, respirator y rate 18, oximetry is 97 on 3 liters. He is ambulating to the bathroom. His exam is unchanged. LABORATORY DATA: No new lab today except for glucoses that have been between 127 to 153. IMPRESSION: 1. Chronic obstructive pulmonary disease exacerbation. 2. Pneumonia. 3. Lung masses. 4. History of coronary artery disease. 5. 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 6. Diabetes. PLAN: Continue with current care. Once he is discharged, he will need to be seen by Dr. King and [place] ve PET imaging.
--- NOTE | 2017-10-25 22:17 | DIS ---
DATE OF ADMISSION: 10/22/2017 DATE OF DISCHARGE: 10/25/2017 DISCHARGE DISPOSITION: To home. PRIMARY DISCHARGE DIAGNOSES: Acute chronic obstructive pulmonary disease exacerbation and acute on c hronic respiratory failure, resolved. SECONDARY DISCHARGE DIAGNOSES: Lung mass with a prior history of pulmonary asbestosis; diabetes bernardo itus, type 2; chronic atrial fibrillation; coronary artery disease; dyslipidemia. PROCEDURES DONE DURING HOSPITALIZATION: CT chest done on the day of admission showed 2 x 2 x 10 cm m ass abutting a calcified pleural plaque in the right lower lob, this was concerning for a malignant p rocess like mesothelioma. There was also a soft tissue mass in the left lung apex measuring 5 x 2 x 2.4 cm, invading into the extrapleural fat, concerning for malignancy. There was focal spiculated ma ss within the anterior segment of the left upper lobe relating to a mediastinal pleura measuring 1.6 x 1.4 x 2 cm also concerning for malignancy versus scar. There were also scarring seen in both lower lobes. There were also findings suggestive of asbestos-related pleural disease. Influenza A and B antigens were negative. H&H 12 and 36, platelet count 148. Discharge white count of 6.9, BUN 19, cr eatinine 1.5. BNP 246. Troponin x2 negative. DISCHARGE MEDICATIONS: Prednisone taper as prescribed over the course of 16 days, Xarelto 20 mg p.o. q.p.m., Flomax 0.4 mg p.o. daily, Spiriva inhaler 18 mcg daily, DuoNeb q.6 hourly, metoprolol 25 mg daily, Protonix 40 mg daily, potassium chloride 10 mEq p.o. daily, Pravachol 40 mg p.o. at bedtime, L asix 20 mg daily, Advair Diskus 250/50 mcg 2 puffs daily, digoxin 0.125 mg p.o. daily, aspirin 81 mg p.o. daily, Augmentin 875 mg p.o. twice daily for a period of 6 days. INPATIENT CONSULT: Dr. King. DISCHARGE PLAN: The patient to follow up with Dr. King in 1-2 weeks for further workup of his lung m ass and primary care physician in 1 week. BRIEF COURSE DURING HOSPITALIZATION: The patient initially got admitted on the for complaints o f shortness of breath. He has known history of COPD and is on home oxygen. Initially, the patient h ad acute respiratory failure and hypoxia which got resolved after placing him on antibiotics, steroid s along with nebulizers. He has had consultation with Dr. King. He had a CT chest done on the day o f admission, which showed multiple mass and pleural thickening suggestive of asbestosis/mesothelioma. He is on tapering steroids and his antibiotics had been switched over to Augmentin. The patient anamaria condon will need a PET scan plus either a bronchoscopy with biopsy or CT guided biopsy in the next 1-2 weeks when he follows up with Dr. King. He is otherwise hemodynamically stable and is ambulating in the room. I have discussed these findings and the current plan with his cousin over the telephone. She would like to take him home. Home health with physical therapy will be set up after the holiday s. Please see a face to face documentation on [facility] for the day of discharge.
== END 2017-10-25 15:50 | disposition home or self-care (01) | DRG 190 ==
LOC: ERS 12:48 → ONC 15:05
PROVIDERS: ADMIT Internal Medicine; ATTEND Internal Medicine
DX: J44.1 Chronic obstructive pulmonary disease with (acute) exacerbation (principal); J96.21 Acute and chronic respiratory failure with hypoxia; J18.8 Other pneumonia, unspecified organism; I48.2 Chronic atrial fibrillation; C45.0 Mesothelioma of pleura; D64.9 Anemia, unspecified; E11.9 Type 2 diabetes mellitus without complications; J61 Pneumoconiosis due to asbestos and other mineral fibers; R91.8 Other nonspecific abnormal finding of lung field; I25.10 Atherosclerotic heart disease of native coronary artery without angina pectoris; E78.5 Hyperlipidemia, unspecified; Z87.891 Personal history of nicotine dependence; Z87.01 Personal history of pneumonia (recurrent); Z66 Do not resuscitate
CPT/HCPCS: 36415; 36416; 71260; 80048; 80053; 80061; 82043; 82553; 82565; 83036; 83880; 84484; 85014; 85018; 85025; 85049; 93005; 94640; 96374; G8978-GP-CK; G8979-GP-CI; G8987-GO-CJ; G8988-GO-CI; J2543; J2930; J7050; J7506; J7611; J7620

== ENCOUNTER 2017-11-27 10:24 | Outpatient (CLI) | payer MEDICARE ==
--- NOTE | 2017-11-27 16:06 | PET ---
PET CT FROM SKULL TO MID THIGH: INDICATION: History of lung mass. TECHNIQUE: Multiple PET CT images were obtained from the skull base through the mid thigh following the administ ration of 12.01 mCi [id number] IV. CT images were obtained for attenuation correction purposes only. COMPARISON: Comparison made with CT of thorax dated 10/30/17. FINDINGS: Biodistribution: The biodistribution for the examination appears acceptable. There is some mild muscular uptake seen i nvolving the neck, shoulder girdles, paraspinal musculature, and proximal pelvic girdle musculature. HEAD/NECK: There is mild hypermetabolic activity seen at the level of the vocal cords, likely related to phonati on. No suspicious lymphadenopathy or definite hypermetabolic soft tissue mass is identified. CHEST: There is scattered emphysema. There are calcified pleural plaques involving both hemithoraces. The more linear air space opacity within the posterior medial aspect of the right lower lobe adjacent to a prominent calcified pleural plaque has not associated hypermetabolic activity and has a peak [place] V value of 1.47 with a mean value of 1.27. There is some volume loss within this region with crowding of the pulmonary vasculature in this location and is most suspicious for rounded atelectasis. The spiculated opacity within the medial left upper lobe on the comparison examination abutting the m ediastinal pleura is no longer present and likely reflective of resolved pneumonia. The pleural parenchymal opacity involving the left lung apex demonstrates no hypermetabolic uptake wi th a mean SUV value of 1.52 and a maximum SUV value of 1.92, and is consistent with area of pleural f ibrosis. There is scattered emphysema involving the lungs. ABDOMEN/PELVIS: No hypermetabolic mass or lymphadenopathy is evident within the abdomen or pelvis. No hypermetabolic ascites is present. SKIN/OSSEOUS STRUCTURES: No hypermetabolic skin or osseous lesion is identified. IMPRESSION: 1. The pleural parenchymal soft tissue involving the left lung apex demonstrates no appreciable hype rmetabolic activity and is most suspicious for an area of prominent pleural parenchymal scar. 2. The spiculated opacity within the anterior segment of the left upper lobe on the comparison CT in October 2017 is no longer identified and likely reflects resolved pneumonia. 3. The more cylindrical appearing opacity within the posterior medial aspect of the right lower lobe abutting the pleural surface and a prominent calcified pleural plaque has no associated hypermetabol ic activity and suspicious for rounded atelectasis. 4. Findings suspicious for asbestos-related pleural disease. 5. Scattered emphysema. 6. Continued surveillance of the lungs is recommended for underlying malignancy. 7. No suspicious hypermetabolic activity seen involving the abdomen, pelvis, skin, osseous structure s, or head/neck region. There is some mild hypermetabolic activity seen at the level of the vocal cor ds, likely related to phonation. Mild hypermetabolic activity is seen within the neck musculature, as well as the shoulder and pelvic girdle musculature likely related to muscular activity. POS: DANIEL
== END 2017-11-27 10:25 | disposition home or self-care (01) ==
LOC: PET 10:24
PROVIDERS: ATTEND Internal Medicine Sleep Medicine
DX: R91.8 Other nonspecific abnormal finding of lung field (principal); J43.9 Emphysema, unspecified; Z87.891 Personal history of nicotine dependence
CPT/HCPCS: 78815; A9552

== ENCOUNTER 2018-02-26 05:59 | Day surgery (SDC) | payer MEDICARE ==
[2018-02-25 15:51] VITALS: BMI 22.5
[~2018-02-26 05:59] MED LIST changes: +Cyclopentolate 1% Opth Drop 2 ML BOT FS SCH; +EPINEPHrine 0.3 MG in Ophthalmic Irrigation Solution 500 ML FS SCH; -ISOVUE-370 76%-LOCM 1 ML ONE; +Phenylephrine 2.5% Ophth Soln 5 ML BOT FS SCH
[2018-02-26] MEDS ORDERED: Lidocaine 2% 10 ML INJ ONE (06:10)
[2018-02-26] MEDS ORDERED: Midazolam HCl 2 mg/2 ml Vial ONE (06:10)
[2018-02-26] MEDS ORDERED: Fentanyl 100 MCG/2 ML VIAL ONE (06:10)
[2018-02-26] MEDS ORDERED: PROPOFOL 20 ML ONE (06:10)
[2018-02-26] MEDS ORDERED: Cyclopentolate 1% Opth Drop 2 ML BOT ONE (06:13)
[2018-02-26] MEDS ORDERED: Phenylephrine 2.5% Ophth Soln 5 ML BOT ONE (06:13)
[2018-02-26] MEDS ORDERED: Acetaminophen 500 MG TAB ONE (08:55)
--- NOTE | 2018-02-26 10:56 | OP ---
DATE OF PROCEDURE: 02/26/2018 PREOPERATIVE DIAGNOSIS: Retained lens fragments in the eye. POSTOPERATIVE DIAGNOSIS: Retained lens fragments in the eye. PROCEDURE: Pars plana vitrectomy, pars plana lensectomy, repair of iris defect, left eye. SURGEON: Dr. Torey West ANESTHESIA: Local with monitored anesthesia care. COMPLICATIONS: None. PROCEDURE IN DETAIL: The patient was identified in the preoperative holding area. Appropriate conse nt for the planned surgical procedure on the left eye had been obtained. The patient was transported to the operative suite where appropriate cardiopulmonary monitoring was established. Local anesthes ia was obtained using retrobulbar and modified Van Lint lid block using 50/50 mixture of 4% lidocaine and 0.75% bupivacaine. The patient was prepped and draped in the usual sterile manner for ophthalmi c surgery on the left eye. Lid speculum was placed in the left eye. The 25-gauge trocars were place d. Conjunctiva sclera supratemporally, inferotemporally, and supranasally. Infusion line was placed inferotemporally. Light pipe and vitreous cutter were inserted into the eye. Core vitrectomy was p erformed. The lens fragments were removed from suspended within the vitreous and from behind and in the lens capsule. A dense asteroid was also removed from the eye. There was a small subretinal hemo rrhage noted inferior to the fovea. A 10-0 Prolene suture was placed through one of the peripheral i ridectomies temporally closing that satisfactory There was still one patent iridectomy inferior tem porally. The AC IOL appeared centered. Prophylactic laser was placed behind the sclerotomies. No h oles, breaks or tears were identified. Trocars were removed and the eye was treated noted to retain pressure well. Retrobulbar Kenalog and subconjunctival Ancef were placed. Atropine and antibiotic o intment placed, and the eye was patched and shielded. The patient was taken to the postoperative rec overy unit in good condition and suffered no immediate perioperative complications. DISCHARGE INSTRUCTIONS: The patient was instructed to keep patch and shield on, avoid lifting or ximena ding, and follow up in the morning with Dr. West.
[2018-02-26] MEDS ORDERED: Lidocaine 1% PF 5 ML VIAL ONE (12:55)
[2018-02-26] MEDS ORDERED: PROPOFOL 200 MG/20 ML VIAL ONE (12:55)
== END 2018-02-26 09:20 | disposition home or self-care (01) ==
LOC: SDC 05:59
PROVIDERS: ATTEND Ophthalmology Retina Specialist
PROC: 08953ZZ Drainage of Left Vitreous, Percutaneous Approach (ICD-10-PCS; principal; 2018-02-26)
PROC: 085K3ZZ Destruction of Left Lens, Percutaneous Approach (ICD-10-PCS; 2018-02-26)
DX: H59.022 Cataract (lens) fragments in eye following cataract surgery, left eye (principal); Z91.030 Bee allergy status; Z88.8 Allergy status to other drugs, medicaments and biological substances
CPT/HCPCS: J0171; J2001; J2250; J2704; J3010

== ENCOUNTER 2018-11-30 10:35 | Outpatient (CLI) | payer MEDICARE ==
--- NOTE | 2018-11-30 11:08 | RAD ---
PA AND LATERAL CHEST: Comparison: 10-22-17 History: COPD. Dyspnea. FINDINGS: Heart size is within normal limits. Severe chronic lung changes are seen. Pleural changes in the left apex are stable. IMPRESSION: Severe chronic lung change, stable. POS: TPC
== END 2018-11-30 10:36 | disposition home or self-care (01) ==
LOC: RAD 10:35
PROVIDERS: ATTEND Internal Medicine Pulmonary Disease
DX: R06.00 Dyspnea, unspecified (principal)
CPT/HCPCS: 71046

== ENCOUNTER 2019-01-31 12:56 | Inpatient (IN) | payer MEDICARE ==
[2019-01-31] MEDS ORDERED: Magnesium 2 GM/50 ML BAG (IN WATER) ONE (13:19)
[2019-01-31] MEDS ORDERED: cefTRIAXone\\ROCEPHIN 2 GM VIAL ONE (13:19)
[2019-01-31] MEDS ORDERED: predniSONE 20 MG TAB ONE (13:19)
--- NOTE | 2019-01-31 13:19 | RAD ---
PORTABLE CHEST: Date: 01/31/19 COMPARISON: 11/30/18. HISTORY: Dyspnea. FINDINGS: Heart size within normal limits. Chronic appearing lung changes are present with parenchymal changes in the right upper and left mid lung field which appear stable as compared to the prior exam. The ple ural changes in the left apex are also stable. IMPRESSION: Severe chronic, essentially stable lung change. POS: NOEMI
[2019-01-31 13:29] LABS: #Basophils 0.1 thou/uL (0.0-0.2); #Eosinphils 0.2 thou/uL (0.0-0.7); #Lymphocytes 0.3 thou/uL (1.20-3.40); #Monocytes 0.4 thou/uL (0.11-0.59); #Neutrophils 4.7 thou/uL (1.40-6.50); %Eosinophils 3.8 % (0.0-10.0); %Lymphocytes 5.8 % (21.0-51.0); %Monocytes 7.3 % (0.0-10.0); %Neutrophils 82.2 % (42.0-75.0); Hemoglobin 14.8 g/dL (14.0-18.0); Mean Corpuscular HGB CONC 34.6 g/dL (32.0-36.0); Mean Corpuscular Hemoglobin 31.1 pg (27.0-31.0); Mean Corpuscular Volume 89.9 fL (78.0-98.0); Mean Platelet Volume 8.1 fL (7.4-10.4); Platelet Count 155 thou/uL (130-400); Red Blood Cell (RBC) Count 4.76 mill/uL (4.70-6.10); White Blood Cell (WBC) Count 5.7 thou/uL (4.8-10.8)
[2019-01-31] MEDS ORDERED: Albuterol Sulfate 2.5 mg/3 ml Neb ONE (13:38)
[2019-01-31] MEDS ORDERED: Albuterol Sulfate 2.5 mg/0.5 ml Neb ONE (13:38)
[2019-01-31 13:51] LABS: Digoxin 1.27 ng/mL (0.8-2.0)
[2019-01-31 13:53] LABS: ALT (SGPT) 10 U/L (8-55); AST (SGOT) 79 U/L (5-34); Albumin 4.5 g/dL (3.4-4.8); Alkaline Phosphatase 77 U/L (40-150); Anion Gap 16 mmol/L (10-20); BUN (Urea Nitrogen) 14 mg/dL (8.4-25.7); Bilirubin, Total 1.4 mg/dL (0.2-1.2); Calc. Creatinine Clearance 0 mL/min (70-130); Calcium 10.3 mg/dL (7.8-10.44); Carbon Dioxide 33 mmol/L (23-31); Chloride 93 mmol/L (98-107); Estimated GFR-MDRD 39; Globulin 2.6 g/dL (2.4-3.5); Glucose 150 mg/dL (83-110); Potassium 3.9 mmol/L (3.5-5.1); Protein, Total 7.1 g/dL (5.8-8.1); Sodium 138 mmol/L (136-145)
[2019-01-31 14:14] LABS: CKMB 2.7 ng/mL (0-6.6)
[2019-01-31] MEDS ORDERED: Acetaminophen 325 MG TAB PO PRN (16:12)
[2019-01-31 16:46] LABS: Troponin I 0.152 ng/mL (< 0.028)
--- NOTE | 2019-01-31 16:49 | PDOC.EVN ---
Event Note - Event Note Event Note: Appears that the patient is on Xarelto. Risk of DVT/PE low. Will not give anticoagulation or order the doppler.
[2019-01-31] MEDS ORDERED: HumaLOG 300 UNITS/3 ML VIAL SC PRN (16:52)
[2019-01-31] MEDS ORDERED: Dextrose 5% in Water 1,000 ML IV PRN (16:52)
[2019-01-31] MEDS ORDERED: Dextrose 50% Abboject 50 ML SYRINGE SLOW IVP PRN (16:52)
[2019-01-31 17:48] LABS: Lactic Acid 2.5 mmol/L (0.5-2.2)
--- NOTE | 2019-01-31 18:02 | HP ---
CHIEF COMPLAINT: Shortness of breath. HISTORY OF PRESENT ILLNESS: This patient is a 78-year-old male with a history of severe COPD and asbestosis. The patient is currently living in [place] with a cousin after he had to move up from [place] because of difficulty maintaining on his own there. The patient was last admitted to this facility in October of 2017. At that time, the patient had lung scans, which revealed significant scarring concerning for possible cancer. He had a followup outpatient PET scan on November 27, 2017, that did not show evidence of cancer, but evidence of asbestosis and some of the lesions that had been present on the CT scan appeared to have resolved more consistent with infectious etiology. The patient has followed in the past with Dr. Reece; however, most recently he was seeing Dr. King. The patient has severe debility due to his pulmonary disease. He is only able to walk very short distances with a long tubing on his oxygen concentrator at home. He reports that over the past 4 to 5 days he has had increasing cough, which has been very challenging for him. It has caused him to have increased shortness of breath. He has had no associated fevers, chills, or sputum production. He has had some discomfort in his right mid axillary rib cage that resolved and then had a recurrence on the left, which he relates to the coughing. The patient reports that he felt like he was actually dying this morning because he became so short of breath due to a severe coughing episode. He has had no ill contacts or changes in his behavior. He has continued to use his home medications. REVIEW OF SYSTEMS: The patient has had very poor appetite. His cousin with whom he lives says he has had very little intake. They have tried to use supplements, but he has not been able to tolerate those because of the vitamin smell. He is not able to swallow well. He has no teeth, although he has never formally had them extracted. He has difficulty chewing, but he also has difficulty swallowing and has some early satiety. He reports he has been told in the past by a speech therapist that he had some type of protrusion in his throat that was causing him problems, but it has never been pursued. Otherwise, he is having 1 bowel movement every 3 to 4 days, but relates this to poor p.o. intake. All other systems were reviewed and pertinent positives and negatives noted in the history of present illness. PAST MEDICAL HISTORY: Notable for the COPD, asbestosis, BPH, chronic anemia, diet-controlled diabetes, and history of atrial fibrillation. PAST SURGICAL HISTORY: None. FAMILY HISTORY: His mother had liver cancer. Father had coronary artery disease. Brother had liver failure. SOCIAL HISTORY: He is . 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 He is . He has 1 child, which he has no contact with. He is a former smoker, who quit in 2016, but smoked a pack and half a day for over 50 years. No alcohol or drugs. ALLERGIES: NEXIUM, WASP AND BEE STINGS, AND NIACIN. CURRENT MEDICATIONS: 1. Aspirin 325 daily. 2. Digoxin 125 mcg daily. 3. Lasix 20 mg daily. 4. Metoprolol 25 mg b.i.d. 5. Potassium 10 mEq daily. 6. Pravastatin 40 mg p.o. at bedtime. PHYSICAL EXAMINATION: VITAL SIGNS: BP 143/95, pulse 87, respirations 20, temperature 98.3, O2 saturation 95% on 4 L nasal cannula. GENERAL APPEARANCE: Age-appropriate male. He is awake, alert, oriented, very pleasant, and cooperative. He is wearing nasal cannula oxygen. He is saturating reasonably well and able to speak in fairly good sentences. HEENT: PERRL. No OP lesions. He is edentulous. There are no teeth visible. NECK: Supple and symmetric. No lymphadenopathy, JVD, or carotid bruits. HEART: Regular rate and rhythm without murmurs, gallops, or rubs. LUNGS: Have scattered wheezes and rales throughout all lung sales with severely diminished air exchange. ABDOMEN: Soft, nontender, and nondistended. Positive bowel sounds. No masses. No organomegaly. EXTREMITIES: The patient has cool feet with significantly diminished pulses, which are barely palpable. NEUROLOGICAL: The patient appears to be fully intact with no evidence of focal deficits. Has normal spontaneous movement of extremities. LABORATORY DATA: White count 5.7, hemoglobin 14.8, platelets 155. D-dimer is 2.84. Sodium 138, potassium 3.9, chloride 93, CO2 of 33, BUN 14, creatinine 1.73, glucose 150. Lactic acid is 2.8, calcium is 10.3, total bilirubin is 1.4, AST is 79, ALT is 10. Troponin 0.049. BNP is 168. Flu screen is negative. IMAGING STUDIES: Chest x-ray showed severe chronic changes, but nothing acute. IMPRESSION AND PLAN: 1. Chronic obstructive pulmonary disease exacerbation. The patient had severe coughing episode this morning, became severely short of breath. He has received some nebulizer treatments and actually feels like he is doing better at the moment. We will give him some fluids. Continue nebulizer, steroids, supplemental oxygen, and repeat a chest x-ray in the morning. 2. Possible bronchitis. The patient is not able to expectorate sputum, but does have a wet cough. We will continue to cover with Rocephin. 3. Dysphagia. We will keep him on a soft mechanical diet and speech therapy to reassess his swallow as he reports early satiety and some difficulty swallowing, especially with meats and breads. 4. Chronic kidney disease stage 3. The patient's current creatinine is at his baseline. 5. Elevated lactic acid. The patient does not appear to be septic. We will repeat that. He has been covered with antibiotics, but there is no evident source of infection. 6. History of diet-controlled diabetes. Blood sugars at 150. We will continue to monitor those since he will be on some steroids. 7. Elevated troponin. Suspect this is demand ischemia secondary to chronic obstructive pulmonary disease exacerbation. We will trend. 8. History of atrial fibrillation, on digoxin. Digoxin level is therapeutic. He is only on aspirin, but no other anticoagulation. He has significant amount of ectopy on his EKG, but otherwise stable. 9. Elevated D-dimer, unclear significance. The patient's creatinine precludes getting a CT angio. We will give him a therapeutic dose of Lovenox and order lower extremity Dopplers. Job ID: [id number]
[2019-01-31 18:15] VITALS: BMI 21.4
[2019-01-31] MEDS ORDERED: Sodium Chloride 0.9% 10 ML ONE (18:27)
[2019-01-31] MEDS: methylPREDNISolone Sod Succ 40 MG VIAL IVP SCH (18:29)
[2019-01-31] MEDS: Mometasone/Formoterol 120 PUFF INHALER INH SCH (19:21)
[2019-01-31 19:34] LABS: Troponin I 0.191 ng/mL (< 0.028)
[2019-01-31] MEDS: Metoprolol Tartrate 25 MG TAB PO SCH (21:47)
[2019-02-01] MEDS: methylPREDNISolone Sod Succ 40 MG VIAL IVP SCH ×5 (00:31→23:58)
[2019-02-01 06:16] LABS: #Lymphocytes 0.4 thou/uL (1.20-3.40); #Monocytes 0.2 thou/uL (0.11-0.59); #Neutrophils 4.4 thou/uL (1.40-6.50); %Basophils 0.3 % (0.0-1.0); %Eosinophils 0.7 % (0.0-10.0); %Lymphocytes 7.3 % (21.0-51.0); %Monocytes 3.1 % (0.0-10.0); %Neutrophils 88.6 % (42.0-75.0); Hemoglobin 12.8 g/dL (14.0-18.0); Mean Corpuscular HGB CONC 34.7 g/dL (32.0-36.0); Mean Corpuscular Hemoglobin 30.7 pg (27.0-31.0); Mean Corpuscular Volume 88.4 fL (78.0-98.0); Mean Platelet Volume 8.7 fL (7.4-10.4); Platelet Count 174 thou/uL (130-400); Red Blood Cell (RBC) Count 4.17 mill/uL (4.70-6.10)
[2019-02-01 06:38] LABS: ALT (SGPT) 11 U/L (8-55); AST (SGOT) 63 U/L (5-34); Albumin 3.7 g/dL (3.4-4.8); Alkaline Phosphatase 56 U/L (40-150); Anion Gap 19 mmol/L (10-20); BUN (Urea Nitrogen) 16 mg/dL (8.4-25.7); Bilirubin, Total 0.6 mg/dL (0.2-1.2); Calc. Creatinine Clearance 38 mL/min (70-130); Calcium 9.8 mg/dL (7.8-10.44); Carbon Dioxide 26 mmol/L (23-31); Chloride 96 mmol/L (98-107); Estimated GFR-MDRD 45; Globulin 2.8 g/dL (2.4-3.5); Glucose 177 mg/dL (83-110); Potassium 3.6 mmol/L (3.5-5.1); Protein, Total 6.5 g/dL (5.8-8.1); Sodium 137 mmol/L (136-145)
[2019-02-01] MEDS: Mometasone/Formoterol 120 PUFF INHALER INH SCH ×2 (07:54→18:53)
[2019-02-01] MEDS: Furosemide 20 MG TAB PO SCH (08:07)
[2019-02-01] MEDS: Metoprolol Tartrate 25 MG TAB PO SCH ×2 (08:07→20:54)
[2019-02-01] MEDS: Digoxin 0.125 MG TAB PO SCH (08:07)
[2019-02-01] MEDS: Aspirin 325 mg Enteric Coated Tablet PO SCH (08:07)
[2019-02-01] MEDS ORDERED: Prevnar 13-Val Conj/PF 0.5 ML SYRINGE IM ONE (09:00)
--- NOTE | 2019-02-01 09:23 | RAD ---
PA AND LATERAL CHEST: COMPARISON: 01/31/2019 study. HISTORY: Shortness of breath. FINDINGS: Heart size is within normal limits. Chronic pleural and parenchymal lung changes are stable. No acu te process identified. Pleural-based calcifications are again demonstrated. IMPRESSION: Stable exam. POS: TPC
--- NOTE | 2019-02-01 10:36 | PRG ---
DATE OF SERVICE: 02/01/2019 SUBJECTIVE: The patient is feeling somewhat better. He is about 50% back to his baseline, but still feels fairly short of breath. Says he tends to have more problems in the mornings and gets little better throughout the day. He had an episode last night, where he was able to swallow water just fine, but when they attempted to give him some Jell-O, he had some choking and aspiration. He has subsequently been made n.p.o., but he is essentially saying he is going to drink some water this morning. He did okay with that last night, so we will liberalize him to have a little bit of water. He still has speech therapy consult pending. OBJECTIVE: VITAL SIGNS: Temperature 97.3, pulse 72, respirations 16, O2 saturation 93% to 95% on 2 L nasal cannula, BP 124/58. GENERAL APPEARANCE: Age-appropriate male. He is in no distress. He is sitting on the edge of the bed with nasal cannula, getting this physical therapy assessment. He is speaking appropriately. LUNGS: Diminished. He has minimal scattered rales improved from yesterday. HEART: Irregular without significant murmurs. Heart sounds are faint. ABDOMEN: Soft, nontender. EXTREMITIES: No cyanosis, clubbing, or edema. SKIN: Warm and dry. LABORATORY DATA: White count 5.0, hemoglobin 12.8, and platelets 174. Chemistries notable for creatinine of 1.52, glucose 177, AST 63, ALT 11. Troponin did slightly trend upward to 0.19. Blood cultures remain negative. Chest x-ray shows chronic pleural and parenchymal changes, but stable. No evidence of acute infiltrate. IMPRESSION AND PLAN: 1. Acute on chronic hypoxic respiratory failure, somewhat improved. 2. Chronic obstructive pulmonary disease exacerbation. Continue with nebulizer treatments, steroids, supplemental oxygen. 3. Bronchitis. Continue with Rocephin. Chest x-ray did not demonstrate infiltrate. 4. Dysphagia. The patient has some history of this. He had some choking with Jell-O last night. We will give him some water this morning. Speech therapy consult is still pending. 5. Chronic kidney disease stage 3, stable. 6. Elevated lactic acid level. Again, this appears to be stable and slightly improved. He does not appear to have sepsis. 7. History of diet-controlled diabetes. Continue with current regimen appears to be adequate control. 8. Aum-DZ-[id number] myocardial infarction type 2 secondary to demand ischemia from chronic obstructive pulmonary disease exacerbation. Discussed this with the patient this morning. We will not proceed with any further aggressive workup. 9. History of atrial fibrillation. The patient is on digoxin and he is on Xarelto. We will continue those. It appears to be adequately compensated. 10. Elevated D-dimer. Again, the patient is on Xarelto and likelihood of pulmonary embolus is low. He has no evidence of deep venous thrombosis and his renal function precludes CT angiogram. Given his overall lung disease, I am not sure V/Q scan will be helpful either given that he is already on Xarelto and will not pursue that further. 11. History of benign prostatic hyperplasia. We will resume his tamsulosin. Job ID: [id number]
--- NOTE | 2019-02-01 13:01 | CON ---
DATE OF CONSULTATION: 02/01/2019 REQUESTING PHYSICIAN: Dr. Herve Carl. REASON FOR CONSULTATION: Dysphagia. HISTORY OF PRESENT ILLNESS: Filemon Quick is a very pleasant 78-year-old gentleman, who was admitted to the hospital overnight with worsening cough and shortness of breath over the past several days. He has a history of severe COPD with asbestosis. He is on home oxygen and he has pretty significant debility from this. He also has atrial fibrillation and is on Xarelto for this. Upon presentation with worsening respiratory status, he had a chest x-ray which showed no acute processes, but a lot of chronic interstitial changes. He also reports that he has been having dysphagia over the past several weeks and months. He describes this as a difficulty with swallowing certain foods, especially soft foods like pudding and jello. He feels as if they will "go down the wrong pipe" and set off coughing episode of worsening shortness of breath. However, he also describes a feeling of significant nausea and early satiety after eating only a few bites every meal. He says his weight has been fluctuating, but recently he has been losing weight again. He really does not have much abdominal pain with this, just the early satiety, nausea, and problems swallowing. Interestingly, he says he was evaluated by a speech pathologist in the past and was told that he had a "protrusion" somewhere which was likely causing this dysphagia. He is unclear of the nature of this. He has been evaluated by Speech Pathology here and had difficulty with a bedside swallowing evaluation and modified barium swallow was planned. He has never undergone EGD. REVIEW OF SYSTEMS: Full review of systems including constitutional, head, eyes, ears, nose, throat, GI, , cardiovascular, respiratory, musculoskeletal, neurologic systems are negative except as noted in the HPI. PAST MEDICAL HISTORY: Severe chronic obstructive pulmonary disease, on home oxygen; asbestosis; debility; diabetes; atrial fibrillation, on Xarelto; chronic anemia. ALLERGIES: NEXIUM AND NIACIN. OUTPATIENT MEDICATIONS: Aspirin 325 mg daily, digoxin, Lasix, metoprolol, potassium 10 mEq daily, and pravastatin. FAMILY HISTORY: Mother had liver cancer. Brother had liver failure. Father had coronary artery disease. SOCIAL HISTORY: He is . DNR. He is a former heavy smoker, but quit about 3 years ago. No alcohol or drug use. PHYSICAL EXAMINATION: VITAL SIGNS: Temperature 97.3, pulse 72, blood pressure 124/58, and 95% oxygen saturation on 2 L nasal cannula. GENERAL: A 78-year-old gentleman, sitting up in bed comfortably, in no acute distress. Appearing chronically ill and thin. SKIN: No jaundice. No rashes were palpable. EYES: No scleral icterus. Extraocular movements are intact. ENT: Mucous membranes are moist. He is edentulous. No oral lesions. LYMPHATIC: No submandibular or supraclavicular lymphadenopathy. THYROID: Nontender to palpation. HEART: Regular rate and rhythm. LUNGS: He does have scattered wheezing and crackles throughout all lung sales. No respiratory distress or tachypnea at this time. ABDOMEN: Flat. Bowel sounds are present. Soft and nontender to palpation. EXTREMITIES: No peripheral edema. NEUROLOGIC: Cranial nerves II through XII intact bilaterally. No focal deficits. LABORATORY STUDIES: WBC 5.0, hemoglobin 12.8, platelets 174, BUN 16, creatinine 1.52, total bilirubin 0.6, alkaline phosphatase 56, AST 63, ALT 11, albumin 3.7. BNP is 168. D-dimer 2.84. Troponin 0.19. Lactic acid 2.4. IMAGING STUDIES: Chest x-ray showed chronic interstitial lung changes. No acute process. ASSESSMENT AND PLAN: 1. Dysphagia. 2. Severe chronic obstructive pulmonary disease. The patient's description of his dysphagia in some respect seems most consistent with oropharyngeal dysphagia rather than esophageal dysphagia. However, he describes a prior evaluation having demonstrated some kind of "protrusion" affecting his esophagus, and he does have this significant complaint of early satiety and nausea. EGD is certainly indicated for further dysphagia workup. Depending on findings, could potentially perform esophageal dilation at the time of the procedure. The patient's Xarelto will be held today. We will plan for EGD tomorrow, probably in the afternoon. Further Recommendations following upper endoscopy. The patient desires to proceed. Thank you for the consultation. Please call anytime with questions or concerns. Job ID: [id number]
--- NOTE | 2019-02-01 15:12 | RAD ---
MODIFIED BARIUM SWALLOW: HISTORY: Dysphagia, unspecified. Feeding difficulty. EXPOSURE: 3.2 minutes. 3.18 mGy. FINDINGS: In the presence of speech pathologist, the patient was administered thin liquid, nectar thick, puddin g, and solid consistencies. A small amount of penetration with thin liquid consistency. IMPRESSION: Please refer to speech pathology report for feeding recommendations. POS: DANIEL
[2019-02-01] MEDS: cefTRIAXone\\ROCEPHIN 1 GM in Sodium Chloride 0.9% 100 ML IVPB SCH (15:53)
[2019-02-01 19:37] LABS: Hemoglobin 13.5 g/dL (14.0-18.0); Platelet Count 195 thou/uL (130-400)
[2019-02-01] MEDS: Tamsulosin HCl 0.4 MG CAP PO SCH (20:54)
--- NOTE | 2019-02-01 20:57 | CON ---
DATE OF CONSULTATION: 02/01/2019 HISTORY OF PRESENT ILLNESS: Mr. Quick is a 78-year-old male, followed recently by Dr. King, prior to that by the pulmonary doctors of [facility]. He has a history of severe chronic obstructive pulmonary disease. He carries a diagnosis of asbestosis as well, although it is not clear whether or not to me that he has progressive pulmonary fibrosis. He presented with several days of dyspnea and coughing. He subsequently has been admitted and says he is feeling better. He says on a good day, he cannot eat more than 2 or 3 bites without running out of breath. PAST MEDICAL HISTORY: Remarkable for: 1. BPH. 2. History of anemia. 3. History of borderline diabetes. 4. History of atrial fibrillation. 5. History of being a do not resuscitate patient. FAMILY HISTORY: Positive for malignancy and vascular disease. SOCIAL HISTORY: He has quit smoking in 2016. He is not a daily drinker or drug user. ALLERGIES: HE REPORTS ALLERGIES TO VENOMOUS INSECTS, NEXIUM, AND NIACIN. MEDICATIONS: 1. Prior to admission, he is on nebulizer four times a day. He says he has 4 inhalers at home. 2. He takes aspirin. 3. Digoxin. 4. Lasix. 5. Metoprolol at a low dose 25 b.i.d. 6. Pravastatin. 7. Potassium. REVIEW OF SYSTEMS: 10-point review of systems completed, otherwise negative. PHYSICAL EXAMINATION: GENERAL: Mr. Quick is a 78-year-old male VITAL SIGNS: He is afebrile, heart rate 72, respiratory rate 16, oximetry is 94 %, and blood pressure 123/59. HEENT: Pupils are equal. Sclerae are anicteric. NECK: Supple. No lymphadenopathy. LUNGS: Remarkable for distant wheezes. HEART: Regular rhythm. S1 and S2 are normal. ABDOMEN: Soft and nontender. EXTREMITIES: Without clubbing, cyanosis, or edema. LABORATORY DATA: White count 5.9, hemoglobin 12.8, and platelets 174,000. Sodium 137, potassium 3.6, chloride 96, bicarb 26, BUN 16, and creatinine 1.52, glucose 177. Chest x-ray shows hyperinflation. He does have some changes in his right upper and left mid lung field that are unchanged compared to films at begin of the year. IMPRESSION: 1. Chronic obstructive pulmonary disease exacerbation. 2. ? underlying asbestosis. 3. Early satiety, most likely related to the severity of his obstructive lung disease. He just completed a modified barium swallow. 4. Deconditioning. I will be happy to follow the other physicians caring for him. Reviewed the orders, agree with current management. Probably, he can be switched to p.o. antimicrobial therapy, although I would decrease his steroid dosing as he appears to be improving. It is a 50-minute consult, with greater than 50% of the time was spent on the unit coordinating care. Job ID: [id number] [email or web address]
[2019-02-01] MEDS ORDERED: Non-Formulary Item 1 EACH (Rivaroxaban [Xarelto] 1 TAB) PO SCH (21:00)
[2019-02-02] MEDS: methylPREDNISolone Sod Succ 40 MG VIAL IVP SCH ×3 (06:21→17:28)
[2019-02-02] MEDS: Mometasone/Formoterol 120 PUFF INHALER INH SCH ×2 (07:51→19:36)
[2019-02-02] MEDS: Digoxin 0.125 MG TAB PO SCH (08:02)
[2019-02-02] MEDS: Metoprolol Tartrate 25 MG TAB PO SCH ×2 (08:02→21:32)
[2019-02-02] MEDS ORDERED: PROPOFOL 200 MG/20 ML VIAL ONE (13:21)
[2019-02-02] MEDS ORDERED: Lidocaine 1% PF 5 ML VIAL ONE (13:21)
[2019-02-02] MEDS ORDERED: Ondansetron HCl/PF 4 MG/2 ML Vial IVP PRN (13:49)
[2019-02-02] MEDS ORDERED: Promethazine HCl 25 MG/ML VIAL IM PRN (13:49)
[2019-02-02] MEDS ORDERED: Promethazine HCl 25 MG/ML VIAL SLOW IVP PRN (13:49)
[2019-02-02] MEDS: Furosemide 20 MG TAB PO SCH (14:17)
[2019-02-02] MEDS: Aspirin 325 mg Enteric Coated Tablet PO SCH (14:17)
[2019-02-02] MEDS: cefTRIAXone\\ROCEPHIN 1 GM in Sodium Chloride 0.9% 100 ML IVPB SCH (15:34)
--- NOTE | 2019-02-02 16:15 | PRG ---
DATE OF SERVICE: 02/02/2019 SUBJECTIVE: [place] complaints except the complaint surrounding drinking contrast for his CT that has been ordered. OBJECTIVE: VITAL SIGNS: Afebrile. Heart rates in the 60s, respiratory rate 17, oximetry is 93% on a 2 L cannula, blood pressure 109/53. LUNGS: Clear. HEART: Regular rhythm. ABDOMEN: Soft. IMPRESSION: 1. COPD, clinically stable. 2. ? underlying asbestosis. 3. Early satiety, modified barium swallow done yesterday showed minimal penetration of thin liquids. CT scan of his abdomen is ordered today. We will continue to follow. Job ID: [id number]
--- NOTE | 2019-02-02 16:30 | CT ---
FCT of abdomen and pelvis without IV contrast Enteric contrast was administered Indication: Early satiety FINDINGS: There is extensive abnormality of the partially imaged lung bases, with an area of rounded density at the medial, posterior right lung base as was demonstrated on 10/22/2017 CT thorax exam. This is inco mpletely assessed. Pleural-based calcifications which can be seen in the setting of asbestos-related pleural disease noted. There are scattered granulomatous calcifications. Cholelithiasis is present. N o small bowel obstruction. There is marked abnormality of the contour of the urinary bladder which co ntains areas of trabeculation and wall prominence as well as bladder diverticula. No obvious perivesi cular inflammatory stranding. There is no free air or portal vein gas. Scattered vascular disease is present. There is an enlarged prostate gland which abuts the urinary bladder base. Scattered osseous degenerative changes are present. There is limited assessment of the regional soft tissues without IV contrast. Impression 1. Incomplete visualization of abnormalities at the low chest, a component of which do indicate asbes tos related pleural disease. Nodularity is redemonstrated as was depicted on 10/22/2017 exam. 2. Findings which likely relate to chronic obstructive uropathy involving urinary bladder with associ ated prostatomegaly. 3. No bowel obstruction. Transcribed Date/Time: 02/02/2019 4:36 PM
[2019-02-02] MEDS: Rivaroxaban 10 MG TAB PO SCH (17:28)
--- NOTE | 2019-02-02 19:05 | OP ---
DATE OF PROCEDURE: 02/02/2019 PROCEDURES PERFORMED: Esophagogastroduodenoscopy with esophageal dilation over guidewire. PREOPERATIVE DIAGNOSES: Esophageal dysphagia and early satiety. DESCRIPTION OF PROCEDURE: Informed consent was obtained from the patient. He was sedated with total intravenous anesthesia. The bite block was placed and the endoscope was advanced easily to the second portion of the duodenum and retroflexion was performed in the stomach. The esophagus had multiple partial rings in the distal esophagus, which were not tight. There was a 1 to 2 cm hiatal hernia present. I passed an 18 mm Savary dilator through the esophagus over a guidewire. Second look endoscopy showed no change or mucosal tears of the esophagus. The stomach was normal including retroflexed views otherwise. The pylorus and first and second portions of the duodenum were normal. IMPRESSION: 1. Mild partial rings in the distal esophagus dilated to 18 mm with no mucosal change following dilation. 2. Small 1 to 2 cm hiatal hernia. 3. Otherwise normal esophagogastroduodenoscopy. RECOMMENDATIONS: 1. Continue proton pump inhibitor. 2. Consider CT scan of the abdomen and pelvis, however, this may not be able to be done with IV contrast given the chronic renal insufficiency. Ideally, given his early satiety, contrast would be most helpful to evaluate for any pancreatic lesion. For now, we can order a CT without contrast. Job ID: [id number]
[2019-02-02] MEDS: Tamsulosin HCl 0.4 MG CAP PO SCH (21:32)
--- NOTE | 2019-02-02 22:34 | PDOC.PN ---
- Subjective Encounter Start Date: 02/02/19 Encounter Start Time: 12:00 Patient seen and examined for Resp failure/Dysphagia. No fever/chills. SOB improving. No new complaints. No overnight events - Objective Resuscitation Status - Order Detail: 01/31/19 16:12 Resuscitation Status Routine Resuscitation Status: DNAR: NO Resuscitation Discussed with: Patient MAR Reviewed: Yes Vital Signs & Weight: Vital Signs (12 hours) Temp Pulse Resp BP Pulse Ox 02/02/19 20:30 97.5 F L 71 18 120/57 L 97 02/02/19 16:00 97.5 F L 66 16 118/58 L 95 02/02/19 14:12 74 16 109/53 L 02/02/19 11:10 97.4 F L 63 16 131/63 93 L Weight Weight 142 lb 6 oz I&O: 02/01/19 02/02/19 02/03/19 06:59 06:59 06:59 Intake Total 120 1300 Output Total 480 400 Balance -480 120 900 Result Diagrams: 02/01/19 19:29 02/01/19 19:29 Additional Labs: Accuchecks 02/02/19 02/02/19 02/02/19 20:28 16:43 11:18 POC Glucose 203 H 148 H 145 H 02/02/19 05:47 POC Glucose 166 H EKG Reviewed by me: Yes (Tele SR) Phys Exam - Physical Examination Constitutional: NAD Respiratory: no wheezing, no rales Scat rhonchi Cardiovascular: RRR, no rub Gastrointestinal: soft, non-tender, positive bowel sounds Musculoskeletal: no edema Neurological: moves all 4 limbs Dx/Plan - Plan DVT proph w/SCDs 1. Acute on chronic hypoxic resp failure/COPD exacerbation 2. Dysphagia 3. DM2 4. HTN 5. Chronic Afib on anticoag 6. Type 2 NH due to #1 7. Lactic acidosis due to dehydration PLAN: Cont Steroids/Nebs EGD today Cont sliding scale Cont other meds as below AM labs Review of Systems - Review of Systems Respiratory: Cough, Dry Cardiovascular: negative: chest pain, palpitations, orthopnea, paroxysmal nocturnal dyspnea, edema, light headedness, other Gastrointestinal: Other (dysphagia). negative: Nausea, Vomiting, Abdominal Pain , Diarrhea, Constipation, Melena, Hematochezia - Medications/Allergies Allergies/Adverse Reactions: Allergies Allergy/AdvReac Type Severity Reaction Status Date / Time bee pollen Allergy Verified 01/31/19 19:42 esomeprazole [From Nexium] Allergy Verified 01/31/19 19:42 Medications: Current Medications Acetaminophen (Tylenol) 650 mg PO Q4H PRN PRN Reason: Headache/Fever/Mild Pain (1-3) Albuterol/Ipratropium (Duoneb) 3 ml NEB [id number] PRN PRN Reason: SOB &/or Wheezing Last Admin: 01/31/19 22:10 Dose: 3 ml Aspirin (Ecotrin) 325 mg PO DAILY [facility] Last Admin: 02/02/19 14:17 Dose: 325 mg Dextrose/Water (Dextrose 50%) 25 gm SLOW IVP PRN PRN PRN Reason: Hypoglycemia Digoxin (Lanoxin) 0.125 mg PO DAILY [facility] Last Admin: 02/02/19 08:02 Dose: 0.125 mg Furosemide (Lasix) 20 mg PO DAILY [facility] Last Admin: 02/02/19 14:17 Dose: 20 mg Glucagon (Glucagon) 1 mg IM PRN PRN PRN Reason: Hypoglycemia Ceftriaxone Sodium 1 gm/ (Sodium Chloride) 100 mls @ 200 mls/hr IVPB Q24HR [facility] Last Admin: 02/02/19 15:34 Dose: 100 mls Dextrose/Water (D5w) 1,000 mls @ 0 mls/hr IV .Q0M PRN PRN Reason: Hypoglycemia Insulin Human Lispro (Humalog) 0 units SC .MILD SLIDING SCALE PRN PRN Reason: Mild Correctional Scale Methylprednisolone Sodium Succinate (Solu-Medrol) 20 mg IVP Q6HR [facility] Last Admin: 02/02/19 17:28 Dose: 20 mg Metoprolol Tartrate (Lopressor) 25 mg PO BID [facility] Last Admin: 02/02/19 21:32 Dose: 25 mg Mometasone Furoate/Formoterol Fumar (Dulera 100 Mcg/5 Mcg Inhaler) 1 puff INH BID-RT [facility] Last Admin: 02/02/19 19:36 Dose: 1 puff Rivaroxaban (Xarelto) 20 mg PO 1700 [facility] Last Admin: 02/02/19 17:28 Dose: 20 mg Sodium Chloride (Flush - Normal Saline) 10 ml IVF Q12HR [facility] Last Admin: 02/02/19 21:32 Dose: 10 ml Sodium Chloride (Flush - Normal Saline) 10 ml IVF PRN PRN PRN Reason: Saline Flush Tamsulosin HCl (Flomax) 0.4 mg PO HS [facility] Last Admin: 02/02/19 21:32 Dose: 0.4 mg
[2019-02-03 05:43] LABS: Hemoglobin 12.1 g/dL (14.0-18.0); Platelet Count 171 thou/uL (130-400)
[2019-02-03 06:05] LABS: Albumin 3.6 g/dL (3.4-4.8); Anion Gap 13 mmol/L (10-20); BUN (Urea Nitrogen) 32 mg/dL (8.4-25.7); BUN/Creatinine Ratio 22.54; Calc. Creatinine Clearance 40 mL/min (70-130); Calcium 9.4 mg/dL (7.8-10.44); Carbon Dioxide 30 mmol/L (23-31); Chloride 99 mmol/L (98-107); Estimated GFR-MDRD 48; Glucose 139 mg/dL (83-110); Magnesium 2.2 mg/dL (1.6-2.6); Phosphorus 4.1 mg/dL (2.3-4.7); Potassium 3.7 mmol/L (3.5-5.1); Sodium 138 mmol/L (136-145)
[2019-02-03] MEDS: methylPREDNISolone Sod Succ 40 MG VIAL IVP SCH ×4 (06:07→17:47)
[2019-02-03] MEDS: Mometasone/Formoterol 120 PUFF INHALER INH SCH ×2 (07:18→18:45)
[2019-02-03] MEDS: Digoxin 0.125 MG TAB PO SCH (08:38)
[2019-02-03] MEDS: Furosemide 20 MG TAB PO SCH (08:38)
[2019-02-03] MEDS: Aspirin 325 mg Enteric Coated Tablet PO SCH (08:38)
[2019-02-03] MEDS: Metoprolol Tartrate 25 MG TAB PO SCH ×2 (08:38→21:16)
[2019-02-03] MEDS: cefTRIAXone\\ROCEPHIN 1 GM in Sodium Chloride 0.9% 100 ML IVPB SCH (15:36)
[2019-02-03] MEDS: Rivaroxaban 10 MG TAB PO SCH (16:11)
--- NOTE | 2019-02-03 19:08 | PRG ---
DATE OF SERVICE: 02/03/2019 SUBJECTIVE: Mr. Quick is feeling okay today. He has been tolerating mechanically soft diet per Speech Pathology recommendations. Dr. Horner performed EGD yesterday with esophageal dilation to 18 mm, really no significant disruption of wide open distal esophageal ring on that exam, no other significant pathology. OBJECTIVE: VITAL SIGNS: Temperature 97.5, pulse 63, blood pressure 133/60, 93% oxygen saturation on 2.5 L nasal cannula. GENERAL: No acute distress. HEART: Regular rate and rhythm. LUNGS: Bilateral crackles. No wheezing at this time. ABDOMEN: Soft and nontender to palpation. EXTREMITIES: No peripheral edema. LABORATORY STUDIES: Hemoglobin 12.1, hematocrit 34.7, platelets 171. Sodium 138, potassium 3.7, BUN 32, creatinine 1.42, glucose 216. ASSESSMENT AND PLAN: 1. Dysphagia, primarily oropharyngeal. 2. Severe chronic obstructive pulmonary disease. 3. Asbestosis. I reviewed the EGD findings from yesterday with the patient. No further workup planned from a GI perspective. Would follow Speech Pathology recommendations on dietary textures. GI will sign off. Please call back anytime with questions or concerns. Job ID: [id number]
--- NOTE | 2019-02-03 19:59 | PRG ---
DATE OF SERVICE: 02/03/2019 SUBJECTIVE: Ynes has no new complaints. He successfully completed his CT yesterday, which only showed large prostate evidence of urinary retention. He had no mediastinal mass or anything extrinsically compressing his esophagus. He does have calcified pleura bilaterally consistent with asbestos exposure in the past. His CAT scan had been changed since 2017. He takes generic Flomax, but has never seen a urologist. OBJECTIVE: VITAL SIGNS: Today, he is afebrile. Heart rate 63, respiratory rate 12, oximetry is 93% on 2 L, and blood pressure 115/55. LUNGS: Free of wheezes. HEART: Regular rhythm. ABDOMEN: Soft. IMPRESSION: 1. Chronic obstructive pulmonary disease, stable. 2. Asbestos pleural disease. 3. Status post esophageal dilation. He appears to be medically stable from my standpoint. Other problems include chronic kidney disease, deconditioning secondary to lack of exercise on top of his COPD, history of anemia, history of borderline diabetes, history of atrial fibrillation, and do not resuscitate status. I have encouraged him to get into rehab for a while. If he gets some of his strength back, we will continue to follow. Job ID: [id number]
[2019-02-03] MEDS: Tamsulosin HCl 0.4 MG CAP PO SCH (21:16)
--- NOTE | 2019-02-03 23:17 | PDOC.PN ---
- Subjective Encounter Start Date: 02/03/19 Encounter Start Time: 14:00 Patient seen and examined for Resp failure. Doing well. SOB improving. No fever/ chills. No other complaints. No overnight events - Objective Resuscitation Status - Order Detail: 01/31/19 16:12 Resuscitation Status Routine Resuscitation Status: DNAR: NO Resuscitation Discussed with: Patient MAR Reviewed: Yes Vital Signs & Weight: Vital Signs (12 hours) Temp Pulse Pulse Pulse Resp BP BP 02/03/19 20:20 97.4 F L 66 16 02/03/19 18:45 67 12 02/03/19 15:40 97.5 F L 63 12 02/03/19 12:14 55 L 55 L 115/55 L 116/54 L 02/03/19 11:40 97.7 F 60 14 BP Pulse Ox Pulse Ox Pulse Ox 02/03/19 20:20 137/61 95 02/03/19 18:45 95 02/03/19 15:40 133/60 93 L 02/03/19 12:14 95 95 02/03/19 11:40 121/58 L 95 Weight Weight 142 lb 6 oz I&O: 02/02/19 02/03/19 02/04/19 06:59 06:59 06:59 Intake Total 120 1300 820 Output Total 400 450 Balance 120 900 370 Result Diagrams: 02/03/19 04:52 02/03/19 04:52 Additional Labs: Accuchecks 02/03/19 02/03/19 02/03/19 20:10 16:41 10:55 POC Glucose 164 H 216 H 182 H 02/03/19 05:39 POC Glucose 137 H EKG Reviewed by me: Yes (Tele SR) Phys Exam - Physical Examination Constitutional: NAD Respiratory: no wheezing, no rales Scat rhonchi luisa at bases Cardiovascular: RRR, no rub Gastrointestinal: soft, non-tender, positive bowel sounds Musculoskeletal: no edema Dx/Plan - Plan DVT proph w/SCDs 1. Acute on chronic hypoxic resp failure/COPD exacerbation 2. Dysphagia - Oropharyngeal - s/p dilatation 3. DM2 4. HTN 5. Chronic Afib on anticoag 6. Type 2 MA due to #1 7. Lactic acidosis due to dehydration PLAN: Cont IV Steroids Cont Nebs Cont sliding scale and other meds as below Accepted at [facility] DC in 24-48 hr if stable Review of Systems - Review of Systems Respiratory: negative: Cough, Dry, Shortness of Breath, Hemoptysis, SOB with Excertion, Pleuritic Pain, Sputum, Wheezing Cardiovascular: negative: chest pain, palpitations, orthopnea, paroxysmal nocturnal dyspnea, edema, light headedness, other - Medications/Allergies Allergies/Adverse Reactions: Allergies Allergy/AdvReac Type Severity Reaction Status Date / Time bee pollen Allergy Verified 01/31/19 19:42 esomeprazole [From Nexium] Allergy Verified 01/31/19 19:42 Medications: Current Medications Acetaminophen (Tylenol) 650 mg PO Q4H PRN PRN Reason: Headache/Fever/Mild Pain (1-3) Albuterol/Ipratropium (Duoneb) 3 ml NEB [id number] PRN PRN Reason: SOB &/or Wheezing Last Admin: 02/03/19 00:23 Dose: 3 ml Aspirin (Ecotrin) 325 mg PO DAILY [facility] Last Admin: 02/03/19 08:38 Dose: 325 mg Dextrose/Water (Dextrose 50%) 25 gm SLOW IVP PRN PRN PRN Reason: Hypoglycemia Digoxin (Lanoxin) 0.125 mg PO DAILY [facility] Last Admin: 02/03/19 08:38 Dose: 0.125 mg Furosemide (Lasix) 20 mg PO DAILY [facility] Last Admin: 02/03/19 08:38 Dose: 20 mg Glucagon (Glucagon) 1 mg IM PRN PRN PRN Reason: Hypoglycemia Ceftriaxone Sodium 1 gm/ (Sodium Chloride) 100 mls @ 200 mls/hr IVPB Q24HR [facility] Last Admin: 02/03/19 15:36 Dose: 100 mls Dextrose/Water (D5w) 1,000 mls @ 0 mls/hr IV .Q0M PRN PRN Reason: Hypoglycemia Insulin Human Lispro (Humalog) 0 units SC .MILD SLIDING SCALE PRN PRN Reason: Mild Correctional Scale Methylprednisolone Sodium Succinate (Solu-Medrol) 20 mg IVP Q6HR [facility] Last Admin: 02/03/19 17:47 Dose: 20 mg Metoprolol Tartrate (Lopressor) 25 mg PO BID [facility] Last Admin: 02/03/19 21:16 Dose: 25 mg Mometasone Furoate/Formoterol Fumar (Dulera 100 Mcg/5 Mcg Inhaler) 1 puff INH BID-RT [facility] Last Admin: 02/03/19 18:45 Dose: 1 puff Rivaroxaban (Xarelto) 20 mg PO 1700 [facility] Last Admin: 02/03/19 16:11 Dose: 20 mg Sodium Chloride (Flush - Normal Saline) 10 ml IVF Q12HR [facility] Last Admin: 02/03/19 21:21 Dose: 10 ml Sodium Chloride (Flush - Normal Saline) 10 ml IVF PRN PRN PRN Reason: Saline Flush Last Admin: 02/03/19 11:43 Dose: 10 ml Tamsulosin HCl (Flomax) 0.4 mg PO HS [facility] Last Admin: 02/03/19 21:16 Dose: 0.4 mg
[2019-02-04] MEDS: methylPREDNISolone Sod Succ 40 MG VIAL IVP SCH ×2 (00:06→05:20)
[2019-02-04] MEDS: Mometasone/Formoterol 120 PUFF INHALER INH SCH (07:19)
[2019-02-04] MEDS ORDERED: predniSONE 20 MG TAB PO SCH ×2 (09:43→10:15)
[2019-02-04] MEDS: Aspirin 325 mg Enteric Coated Tablet PO SCH (09:44)
[2019-02-04] MEDS: Digoxin 0.125 MG TAB PO SCH (09:44)
[2019-02-04] MEDS: Metoprolol Tartrate 25 MG TAB PO SCH (09:46)
[2019-02-04] MEDS: Furosemide 20 MG TAB PO SCH (09:46)
--- NOTE | 2019-02-04 10:23 | PRG ---
DATE OF SERVICE: 02/04/2019 SUBJECTIVE: Ynes is afebrile. OBJECTIVE: VITAL SIGNS: Heart rate in 50s, respiratory rate in the teens, and oximetry is 94% on 2 L. LUNGS: Clear today. HEART: Regular rhythm. ABDOMEN: Soft. He tells me he is going to rehab. He has an appointment with Dr. King in March. He can follow up with Dr. King at that appointment. History of COPD appears to be stable. We will continue his nebulizer treatments. His steroids can be converted to p.o. prednisone at 20 mg a day. I think he would remain stable on this dose. We will continue to follow while he is in the hospital and he will keep his appointment with Dr. King in 2 to 3 weeks. Job ID: [id number]
[2019-02-04 15:14] VITALS: BP 129/61; TEMP 97.8
[2019-02-05] MEDS ORDERED: predniSONE 20 MG TAB PO SCH (08:00)
--- NOTE | 2019-02-05 08:18 | DIS ---
DATE OF ADMISSION: 02/01/2019 DATE OF DISCHARGE: 02/04/2019 DISCHARGE DISPOSITION: [facility]. CODE STATUS: Do not resuscitate. ALLERGIES: THE PATIENT IS ALLERGIC TO PPIS. THE PATIENT WAS SEEN ON THE DAY OF DISCHARGE. DENIES ANY NEW COMPLAINTS. NO CHEST PAIN, SHORTNESS OF BREATH, OR PALPITATIONS REPORTED. DISCHARGE MEDICATIONS: 1. Omnicef 300 mg twice a day for next 4 days. 2. Doxycycline 100 mg twice a day for next 4 days. 3. Dulera b.i.d. 4. Prednisone as directed. All other home medications were left unchanged. BRIEF HOSPITAL COURSE: The patient is a 78-year-old man with COPD, presented to the hospital with worsening shortness of breath on January 31, 2019. Please refer to the history and physical by Dr. Herve Carl for further details. The patient was admitted to the hospital with a diagnosis of COPD exacerbation. He was started on IV steroids, antibiotics, and nebulizer treatment. His oxygen saturation in the emergency room was 80% on 3 L nasal cannula. He showed slow and gradual improvement. The antibiotics and steroids will be changed to oral. He has been cleared by Dr. Holman for discharge. He will follow up with Dr. King as outpatient. The patient was found to have significant swallowing difficulty. He was evaluated by the Speech Therapy as well as Gastroenterology, Dr. Justice. On February 02, 2019, he underwent EGD with esophageal dilatation. He was advised to continue PPIs. Please note that the patient is allergic to esomeprazole and is able to tolerate Protonix. He has been cleared by consultants for discharge. FINAL DIAGNOSES: 1. Acute on chronic hypoxic respiratory failure secondary to chronic obstructive pulmonary disease exacerbation. 2. Dysphagia, status post esophageal dilatation. 3. Diabetes mellitus type 2. 4. Hypertension. 5. Chronic atrial fibrillation, on anticoagulation. 6. Type 2 myocardial infarction secondary to respiratory failure. 7. Lactic acidosis on admission secondary to dehydration. 8. Chronic anemia. 9. Abnormal LFTs on admission, probably secondary to respiratory failure. Repeat LFTs were improved. 10. Mild acute kidney injury on chronic kidney disease stage 3, improved. PLAN: Plan of care was discussed with the patient in detail, he stated understanding. TIME SPENT: Total time coordinating the discharge of this patient was 33 minutes. Job ID: [id number]
== END 2019-02-04 15:49 | DRG 189 ==
LOC: ERS 12:56 → 2NO 14:49 → OBSVTOIN 02-01 10:05
PROVIDERS: ADMIT Internal Medicine; ATTEND Internal Medicine
PROC: 0D738ZZ Dilation of Lower Esophagus, Via Natural or Artificial Opening Endoscopic (ICD-10-PCS; principal; 2019-02-02)
DX: J96.21 Acute and chronic respiratory failure with hypoxia (principal); I21.A1 Myocardial infarction type 2; J44.1 Chronic obstructive pulmonary disease with (acute) exacerbation; E87.2 Acidosis; Z66 Do not resuscitate; J61 Pneumoconiosis due to asbestos and other mineral fibers; N40.0 Benign prostatic hyperplasia without lower urinary tract symptoms; I48.91 Unspecified atrial fibrillation; E11.22 Type 2 diabetes mellitus with diabetic chronic kidney disease; N18.3 Chronic kidney disease, stage 3 (moderate); R13.12 Dysphagia, oropharyngeal phase; D63.1 Anemia in chronic kidney disease; K44.9 Diaphragmatic hernia without obstruction or gangrene; E86.0 Dehydration; Z79.01 Long term (current) use of anticoagulants; Z88.8 Allergy status to other drugs, medicaments and biological substances; Z79.899 Other long term (current) drug therapy; Z79.82 Long term (current) use of aspirin
CPT/HCPCS: 36415; 36416; 71045; 71046; 74176; 74230; 80053; 80069; 80162; 82553; 83605; 83735; 83880; 84484; 85014; 85018; 85025; 85049; 85379; 87040; 87804; 93005; 94640; 96361; 96365; J0696; J2001; J2704; J2920; J3475; J7050; J7611; J7620

== ENCOUNTER 2019-02-17 14:06 | Inpatient (IN) | payer MEDICARE ==
[2019-02-17] MEDS ORDERED: Magnesium 2 GM/50 ML BAG (IN WATER) ONE (14:19)
[2019-02-17 14:32] LABS: Hemoglobin 14.9 g/dL (14.0-18.0); Mean Corpuscular HGB CONC 33.7 g/dL (32.0-36.0); Mean Corpuscular Hemoglobin 30.4 pg (27.0-31.0); Mean Corpuscular Volume 90.1 fL (78.0-98.0); Mean Platelet Volume 9.3 fL (7.4-10.4); Platelet Count 132 thou/uL (130-400); RBC Distribution Width 12.8 % (11.5-14.5); White Blood Cell (WBC) Count 7.2 thou/uL (4.8-10.8)
[2019-02-17 14:34] LABS: Bilirubin Small (Negative); Blood, Urine Trace (Negative); Clarity CLOUDY (Clear); Glucose, Urine (Dipstick) Negative (Negative); Leukocyte Negative (Negative); Nitrite Negative (Negative); Protein, Urine (Dipstick) 100 mg/dL (Neg-Trace); Specific Gravity, Urine 1.024 (1.002-1.036); pH, Urine 5.5 (5.0-9.0)
[2019-02-17 14:40] LABS: Bacteria/HPF None Seen HPF (None Seen); Squamous Epithelial 0-3 HPF (0-3); WBC/HPF 0-3 HPF (0-3)
[2019-02-17 14:43] LABS: Pathc Cast-AUWi Flag 6.52 (0-2.49)
--- NOTE | 2019-02-17 14:45 | RAD ---
PORTABLE CHEST ONE VIEW: 02/17/2019 2:28 p.m. HISTORY: Dyspnea. COMPARISON: 02/01/2019 FINDINGS: The heart size is normal. Chronic pleural parenchymal lung changes and pleural-based calcifications are stable. No focal areas of consolidation, pneumothoraces, or pleural effusions are seen. IMPRESSION: Stable examination. No acute process. POS: [facility]
[2019-02-17 14:53] LABS: Hyaline Casts/LPF 0-3 HYALINE CAST LPF (0-3 Hyaline); Manual Microscopic Reviewed? No Path Casts Seen
[2019-02-17] MEDS ORDERED: cefTRIAXone\\ROCEPHIN 1 GM VIAL ONE (14:53)
[2019-02-17 14:57] LABS: Band 13 % (5-11); Lymphocytes 8 % (21-51); MDiff Complete? YES; Metamyelocyte 2 % (0-0); Monocytes 7 % (0-10); Neutrophil 70 % (42-75); Platelet Morphology Comment Appears Adequate; Polychromasia SLIGHT = 2-3 cells (100X) (0-2/hpf)
[2019-02-17 14:58] LABS: ALT (SGPT) 18 U/L (8-55); AST (SGOT) 176 U/L (5-34); Albumin 3.7 g/dL (3.4-4.8); Alkaline Phosphatase 79 U/L (40-150); Anion Gap 25 mmol/L (10-20); BUN (Urea Nitrogen) 48 mg/dL (8.4-25.7); Bilirubin, Total 1.2 mg/dL (0.2-1.2); Calc. Creatinine Clearance 0 mL/min (70-130); Calcium 10.8 mg/dL (7.8-10.44); Carbon Dioxide 23 mmol/L (23-31); Chloride 94 mmol/L (98-107); Estimated GFR-MDRD 44; Globulin 3.8 g/dL (2.4-3.5); Glucose 134 mg/dL (83-110); Potassium 4.7 mmol/L (3.5-5.1); Protein, Total 7.5 g/dL (5.8-8.1); Sodium 137 mmol/L (136-145)
[2019-02-17 15:47] LABS: CKMB 4.7 ng/mL (0-6.6)
[2019-02-17 17:41] LABS: Troponin I 0.063 ng/mL (< 0.028)
[2019-02-17] MEDS ORDERED: Senokot S 8.6-50 MG TAB PO PRN (19:06)
[2019-02-17] MEDS ORDERED: Zolpidem Tartrate 5 MG TAB PO PRN (19:06)
[2019-02-17] MEDS ORDERED: Acetaminophen 325 MG TAB PO PRN (19:06)
[2019-02-17] MEDS ORDERED: Guaifenesin DM 100-10/5 ML UDCUP PO PRN (19:06)
[2019-02-17] MEDS ORDERED: Ondansetron ODT 4 MG TAB PO PRN (19:06)
[2019-02-17] MEDS ORDERED: Ondansetron PF 4 MG/2 ML Vial IVP PRN (19:06)
[2019-02-17] MEDS ORDERED: Acetaminophen 650 MG Suppository PR PRN (19:06)
[2019-02-17] MEDS: Mometasone/Formoterol 120 PUFF INHALER INH SCH (19:09)
--- NOTE | 2019-02-17 19:09 | HP ---
PRIMARY CARE PHYSICIAN: Susie Raines MD. CHIEF COMPLAINT: Shortness of breath. HISTORY OF PRESENT ILLNESS: This is a 78-year-old white male with a known history of severe COPD, who was last seen in our facility 13 days ago. He was treated for COPD exacerbation and also had some dysphagia for which he was treated with esophageal dilatation. He was [facility] to a [facility] and reports that he was on 3 to 4 L of oxygen there. His dysphagia never really got better and he has had significant weight loss since he got to fdc. Then for the past week, he has had severe worsening shortness of breath and coughing, nonproductive, has had some subjective fevers and then getting very fatigued with shortness of breath. He was tried on some steroids, but was unable to hold it down at the [facility], eventually they called EMS. The patient was brought to the emergency. He was found to be in acute respiratory distress with O2 saturations holding up on 3 to 4 L of oxygen, but tachypnea and increased work of breathing and so he was put on BiPAP. He was also given DuoNeb and magnesium and is feeling a lot better now, breathing much easier on the BiPAP mask, saturating well. PAST MEDICAL HISTORY: 1. Severe chronic obstructive pulmonary disease, on chronic oxygen. 2. Asbestosis. 3. Benign prostatic hyperplasia. 4. Chronic anemia. 5. Diet-controlled diabetes mellitus type 2. 6. History of atrial fibrillation. 7. Coronary artery disease with a heart attack one year ago. 8. Hypertension. 9. Chronic renal failure stage 2. PAST SURGICAL HISTORY: EGD with esophageal dilatation. Cataract surgery. SOCIAL HISTORY: The patient is . He has one child with whom he has no contact with. He is a former smoker, quit in 2016 with a [id number] history. No alcohol or illicit drugs. He is a do not attempt resuscitation and his surrogate decision maker is his cousin, Nel Lund. FAMILY HISTORY: Mother had liver cancer. Father had coronary artery disease and brother had liver failure. ALLERGIES: NEXIUM (CAN TAKE PROTONIX JUST FINE), WASP AND BEE STINGS, AND NIACIN. CURRENT MEDICATIONS: 1. DuoNeb as needed. 2. Symbicort twice a day. 3. Aspirin 325 mg daily. 4. Ofloxacin ophthalmic. 5. Combigan ophthalmic. 6. Systane ophthalmic. 7. Digoxin 125 mcg daily. 8. Furosemide 20 mg daily. 9. Metoprolol tartrate 12.5 mg twice a day. 10. Protonix 40 mg daily. 11. Potassium chloride 10 mEq daily. 12. Pravastatin 40 mg daily. 13. Prednisone 20 mg daily for 3 days. 14. Tamsulosin 0.4 mg daily. 15. Spiriva Respimat 2.5 mcg daily. 16. Xarelto 20 mg daily. REVIEW OF SYSTEMS: CONSTITUTIONAL: See HPI. EYES: No double vision or blurred vision. ENT: No congestion, drainage, or sore throat. CARDIOVASCULAR: No chest pain. No palpitations or racing heart. PULMONARY: See HPI. GASTROINTESTINAL: No abdominal pain. No nausea or vomiting. No diarrhea. He has not had any bowel movement for 4 days. GENITOURINARY: No hematuria. He does have a little bit of discomfort with urination on and off from his prostate problems. This has not changed recently. MUSCULOSKELETAL: He has a little bit of lower right rib cage pain from coughing. No other muscle aches or joint pain. SKIN: No rashes or lesions is noted. NEUROLOGIC: No numbness, tingling, or focal weakness. PHYSICAL EXAMINATION: VITAL SIGNS: Blood pressure 122/74, pulse 101, respirations are 24, temperature 98.3, O2 saturation 99% on BiPAP, and temperature 98.3. GENERAL: This is a well-developed, thin white male and was in mild respiratory distress on BiPAP HEENT: Right pupil round and reactive. Left pupil does have some asymmetric deformity to it and is less reactive secondary to previous cataract surgery. Oropharynx is dry without any lesions or exudate. BiPAP mask in place. NECK: Supple. No lymphadenopathy. No thyroid nodules or enlargement. No JVD. HEART: Mildly tachycardic with regular rhythm. LUNGS: The patient has decreased breath sounds bilaterally. He has some rhonchi and dry crackles in bilateral bases, especially worse on the left lower lung. ABDOMEN: Soft and nontender to palpation with normoactive bowel sounds. No hepatosplenomegaly or other masses. EXTREMITIES: No clubbing, cyanosis, or edema. SKIN: No rashes or lesions noted. NEUROLOGIC: The patient has intact strength in all extremities and no facial droop. PSYCHIATRIC: Alert and oriented x3. Normal mood and affect. LABORATORY DATA: CBC within normal limits with a mild bandemia of 13%, but a white blood cell count of 7.2. Complete metabolic panel is notable for chloride of 94 , anion gap of 25, BUN of 48, and creatinine of 1.54, which is about baseline for him. A glucose of 134, elevated lactic acid of 4.2, calcium of 10.8, AST of 176. The rest was normal. Brain natriuretic peptide was 174, which is about baseline for him. Troponins were indeterminate at 0.08 and 0.06, and CK-MB was negative. Urinalysis showed trace blood, 4 to 6 red blood cells, 0 to 3 white blood cells and no bacteria. Chest x-ray: I did review the chest x-ray done in the emergency room along with the radiologist's report. It shows normal heart size, some chronic pleural parenchymal lung changes and pleural-based calcifications, which are stable. No acute changes. No acute infiltrates. EKG I did review the EKG done in the emergency room, which shows some sinus tachycardia with some significant ST depression in the V3 and V4 leads. ASSESSMENT: 1. Severe chronic obstructive pulmonary disease with exacerbation. We will continue DuoNebs, steroids, and BiPAP mask as needed. With the patient in the IMCU, I will have Pulmonology consulted. 2. Acute on chronic respiratory failure with hypoxia. 3. ST-segment depression, likely due to stress ischemia from the respiratory distress when he came in. Dr. Baltazar was consulted from the emergency room. He reviewed previous EKGs and determined this was not much of a change. It was likely just due to his the stress of his COPD exacerbation. There is a consult for Cardiology in the morning. We will continue trending his troponins as well. 4. Severe dysphagia with weight loss. We will have speech therapy re-evaluate the patient in the hospital and see if we can get him eating better. May need GI to see him again as well. 5. Hypertension. Resume patient's home medications. 6. Atrial fibrillation. We will resume patient's Xarelto. 7. Diet controlled diabetes. We will put the patient on diabetic diet. Check [id number] blood sugars before meals and at bedtime. 8. Gastrointestinal prophylaxis. We will continue the patient's Protonix. 9. DVT prophylaxis. The patient is already on Xarelto. CODE STATUS: I did discuss this with the patient. He is a do not attempt resuscitation and his medical decision maker should he be incapacitated would be his cousin, Nel Lund. Job ID: [id number] [facility]
[2019-02-17] MEDS ORDERED: methylPREDNISolone Sod Succ 40 MG VIAL IVP SCH (19:15)
[2019-02-17 19:16] LABS: Lactic Acid 3.8 mmol/L (0.5-2.2)
[2019-02-17] MEDS: Metoprolol Tartrate 25 MG TAB PO SCH (22:30)
[2019-02-17] MEDS: Rivaroxaban 10 MG TAB PO SCH (22:34)
[2019-02-17] MEDS: Pravastatin Sodium 40 MG TAB PO SCH (22:34)
[2019-02-17] MEDS: Tamsulosin HCl 0.4 MG CAP PO SCH (22:34)
[2019-02-18] MEDS: methylPREDNISolone Sod Succ 40 MG VIAL IVP SCH ×4 (01:23→18:41)
[2019-02-18 06:30] LABS: Anion Gap 22 mmol/L (10-20); BUN (Urea Nitrogen) 51 mg/dL (8.4-25.7); Calc. Creatinine Clearance 35 mL/min (70-130); Calcium 9.6 mg/dL (7.8-10.44); Carbon Dioxide 20 mmol/L (23-31); Chloride 100 mmol/L (98-107); Estimated GFR-MDRD 47; Glucose 174 mg/dL (83-110); Potassium 4.2 mmol/L (3.5-5.1); Sodium 138 mmol/L (136-145)
[2019-02-18] MEDS: Mometasone/Formoterol 120 PUFF INHALER INH SCH ×2 (07:19→19:19)
[2019-02-18 07:31] LABS: #Lymphocytes 0.4 thou/uL (1.20-3.40); #Monocytes 0.3 thou/uL (0.11-0.59); #Neutrophils 5.3 thou/uL (1.40-6.50); %Basophils 0.2 % (0.0-1.0); %Eosinophils 0.6 % (0.0-10.0); %Lymphocytes 6.9 % (21.0-51.0); %Monocytes 4.1 % (0.0-10.0); %Neutrophils 88.1 % (42.0-75.0); Hemoglobin 12.9 g/dL (14.0-18.0); Mean Corpuscular HGB CONC 31.8 g/dL (32.0-36.0); Mean Corpuscular Hemoglobin 28.8 pg (27.0-31.0); Mean Corpuscular Volume 90.4 fL (78.0-98.0); Mean Platelet Volume 9.1 fL (7.4-10.4); Platelet Count 112 thou/uL (130-400); RBC Distribution Width 12.6 % (11.5-14.5); Red Blood Cell (RBC) Count 4.47 mill/uL (4.70-6.10)
[2019-02-18] MEDS: Metoprolol Tartrate 25 MG TAB PO SCH ×2 (09:23→20:51)
[2019-02-18] MEDS: Potassium Chloride 10 MEQ TAB PO SCH (09:25)
[2019-02-18] MEDS: Digoxin 0.125 MG TAB PO SCH (09:25)
[2019-02-18] MEDS: Aspirin 81 mg Enteric Coated Tablet PO SCH (09:25)
[2019-02-18] MEDS: Furosemide 20 MG TAB PO SCH (09:25)
[2019-02-18 13:36] VITALS: BMI 19.4
[2019-02-18] MEDS ORDERED: Magnesium Sulfate 3 GM in Sodium Chloride 0.9% 100 ML IVPB SCH (14:00)
[2019-02-18] MEDS ORDERED: guaiFENesin ER 600 MG TAB PO SCH (14:00)
[2019-02-18] MEDS: cefTRIAXone\\ROCEPHIN 1 GM in Sodium Chloride 0.9% 100 ML IVPB SCH (15:16)
--- NOTE | 2019-02-18 15:26 | PDOC.PN ---
- Subjective Encounter Start Date: 02/18/19 Encounter Start Time: 10:15 Subjective: pt up in bed feels very sob - Objective Resuscitation Status - Order Detail: 02/17/19 17:19 Resuscitation Status Routine Resuscitation Status: DNAR: NO Resuscitation Discussed with: Patient Vital Signs & Weight: Vital Signs (12 hours) Temp Pulse Pulse Pulse Resp BP BP 02/18/19 12:05 81 20 02/18/19 11:20 97.7 F 02/18/19 10:30 85 85 122/54 L 127/61 02/18/19 09:25 92 02/18/19 07:53 02/18/19 07:23 92 20 02/18/19 07:20 97.2 F L 02/18/19 07:19 80 24 H 02/18/19 03:44 98.2 F Pulse Ox Pulse Ox Pulse Ox 02/18/19 12:05 95 02/18/19 11:20 02/18/19 10:30 95 92 L 02/18/19 09:25 02/18/19 07:53 95 02/18/19 07:23 95 02/18/19 07:20 02/18/19 07:19 95 02/18/19 03:44 Weight Admit Weight 126 lb 4 oz Weight 127 lb 11.2 oz Most Recent Monitor Data Heart Rate from ECG 87 NIBP 110/55 NIBP BP-Mean 73 Respiration from ECG 17 SpO2 95 I&O: 02/17/19 02/18/19 02/19/19 06:59 06:59 06:59 Intake Total 610 Output Total 400 250 Balance 210 -250 Result Diagrams: 02/18/19 05:56 02/18/19 05:56 Phys Exam - Physical Examination pt appear cachetic Neck: no nodes, no JVD, supple, full ROM rhonchi and wheezing all over Cardiovascular: RRR, no significant murmur, no rub, gallop, irregular Gastrointestinal: soft, non-tender, no distention, positive bowel sounds Musculoskeletal: no edema, pulses present, edema present Dx/Plan (1) Acute and chronic respiratory failure Code(s): J96.20 - ACUTE AND CHR RESP FAILURE, UNSP W HYPOXIA OR HYPERCAPNIA Status: Resolved Qualifiers: Respiratory failure complication: hypoxia Qualified Code(s): J96.21 - Acute and chronic respiratory failure with hypoxia Comment: on nasal canula (2) Atrial fibrillation Code(s): I48.91 - UNSPECIFIED ATRIAL FIBRILLATION Status: Chronic Qualifiers: Atrial fibrillation type: chronic Qualified Code(s): I48.2 - Chronic atrial fibrillation (3) Diabetes mellitus type 2 in nonobese Code(s): E11.9 - TYPE 2 DIABETES MELLITUS WITHOUT COMPLICATIONS Status: Chronic (4) Dyslipidemia Code(s): E78.5 - HYPERLIPIDEMIA, UNSPECIFIED Status: Chronic - Plan pt very sob, no eating much. will continue current tx -: will get hospice to come and talk with pt. * . Review of Systems - Review of Systems Respiratory: Shortness of Breath Cardiovascular: negative: chest pain, palpitations, orthopnea, paroxysmal nocturnal dyspnea, edema, light headedness, other Gastrointestinal: negative: Nausea, Vomiting, Abdominal Pain, Diarrhea, Constipation, Melena, Hematochezia, Other - Medications/Allergies Allergies/Adverse Reactions: Allergies Allergy/AdvReac Type Severity Reaction Status Date / Time bee pollen Allergy Verified 02/17/19 19:56 esomeprazole [From Nexium] Allergy Verified 02/17/19 19:56 niacin Allergy Verified 02/17/19 19:56 Medications: Current Medications Acetaminophen (Tylenol) 650 mg PO Q4H PRN PRN Reason: Headache/Fever/Mild Pain (1-3) Acetaminophen (Tylenol) 650 mg HI Q4H PRN PRN Reason: Headache/Fever/Mild Pain (1-3) Albuterol/Ipratropium (Duoneb) 3 ml NEB [id number] PRN PRN Reason: SOB &/or Wheezing Albuterol/Ipratropium (Duoneb) 3 ml EZPAP [id number] [facility] Aspirin (Ecotrin) 81 mg PO DAILY [facility] Last Admin: 02/18/19 09:25 Dose: 81 mg Digoxin (Lanoxin) 0.125 mg PO DAILY [facility] Last Admin: 02/18/19 09:25 Dose: 0.125 mg Furosemide (Lasix) 20 mg PO DAILY [facility] Last Admin: 02/18/19 09:25 Dose: 20 mg Guaifenesin (Mucinex) 600 mg PO Q12HR [facility] Guaifenesin/Dextromethorphan (Robitussin Dm) 15 ml PO Q4H PRN PRN Reason: Cough Ceftriaxone Sodium 1 gm/ (Sodium Chloride) 100 mls @ 200 mls/hr IVPB 1500 [facility] Last Admin: 02/18/19 15:16 Dose: 100 mls Diltiazem HCl 125 mg/Miscellaneous Medication 1 each/ Sodium Chloride 125 mls @ 5 mls/hr IVPB INF [facility]; Protocol Last Admin: 02/17/19 20:14 Dose: 125 mls Magnesium Sulfate 3 gm/ Sodium (Chloride) 106 mls @ 100 mls/hr IVPB NOW NEHEMIAH Stop: 02/18/19 16:00 Last Admin: 02/18/19 15:11 Dose: 106 mls Methylprednisolone Sodium Succinate (Solu-Medrol) 40 mg IVP Q6HR [facility] Last Admin: 02/18/19 12:25 Dose: 40 mg Metoprolol Tartrate (Lopressor) 12.5 mg PO BID [facility] Last Admin: 02/18/19 09:23 Dose: 12.5 mg Mometasone Furoate/Formoterol Fumar (Dulera 100 Mcg/5 Mcg Inhaler) 1 puff INH BID-RT [facility] Last Admin: 02/18/19 07:19 Dose: 1 puff Ondansetron HCl (Zofran Odt) 4 mg PO Q6H PRN PRN Reason: Nausea/Vomiting Ondansetron HCl (Zofran) 4 mg IVP Q6H PRN PRN Reason: Nausea/Vomiting Pantoprazole Sodium (Protonix) 40 mg PO DAILY [facility] Last Admin: 02/18/19 09:24 Dose: Not Given Potassium Chloride (Klor-Con 10) 10 meq PO DAILY [facility] Last Admin: 02/18/19 09:25 Dose: 10 meq Pravastatin Sodium (Pravachol) 40 mg PO HS [facility] Last Admin: 02/17/19 22:34 Dose: Not Given Rivaroxaban (Xarelto) 20 mg PO QPM [facility] Last Admin: 02/17/19 22:34 Dose: Not Given Senna/Docusate Sodium (Senokot S) 2 tab PO BID PRN PRN Reason: Constipation Tamsulosin HCl (Flomax) 0.4 mg PO HS [facility] Last Admin: 02/17/19 22:34 Dose: Not Given Zolpidem Tartrate (Ambien) 5 mg PO HSPRN PRN PRN Reason: Insomnia
--- NOTE | 2019-02-18 18:21 | CON ---
DATE OF CONSULTATION: HISTORY OF PRESENT ILLNESS: Mr. Quick is a 78-year-old male with advanced chronic obstructive pulmonary disease. He presented with respiratory distress. Apparently, he has been in a rehab hospital, but has lost 10 pounds at the rehab hospital. His p.o. intake has been extremely poor according to family. He subsequently has been transferred back to the hospital for noninvasive ventilation and support. PAST MEDICAL HISTORY: Remarkable for, 1. BPH. 2. Anemia. 3. Diabetes. 4. Atrial fib. 5. History of coronary artery disease. 6. History of myocardial infarction. 7. History of chronic kidney disease. 8. History of hypertension. 9. Tobacco use until 2016. SOCIAL HISTORY: He is a nondrinker. ALLERGIES: HE REPORTS ALLERGIES TO VENOMOUS INSECT, NEXIUM, AND NIACIN. REVIEW OF SYSTEMS: Otherwise negative. PHYSICAL EXAMINATION: GENERAL: I saw him earlier this month when he was in the hospital. His condition has deteriorated considerably. VITAL SIGNS: He is afebrile, heart rate is 88, respiratory rate is 20, oximetry is 93% on 2 L, and blood pressure 110/55. HEENT: Pupils are equal. Sclerae are anicteric. NECK: Supple. CHEST: He has a rhonchorous chest exam and improves a little with the cough, but he has prolonged expiratory phase. HEART: Regular rhythm. No S3. ABDOMEN: Soft and nontender. EXTREMITIES: Without clubbing, cyanosis, or edema. NEURO: Grossly nonfocal. He is overall cachectic and weak. LABORATORY DATA: White count 6, hemoglobin 12.9, platelets 112. Sodium 138, potassium 4.2, chloride 100, bicarb 20, BUN 51, creatinine 1.47, glucose 174. IMPRESSION AND PLAN: Chronic obstructive pulmonary disease exacerbation. I feel the biggest problem we are facing is lack of p.o. intake, lack of exercise, and cachexia. His family says he was declining exercises at the rehab hospital, and he has also been declining to eat. Protein shakes may be helpful, but if he cannot exercise, he will not progress. I suspect he has reached a point of no return from a strength standpoint. It would not be appropriate for hospice to be involved in his care in my opinion. I relayed this to family when they inquired about that. TIME SPENT: This is a 50-minute consult, 50% of the time was spent on the unit coordinating care. Job ID: [id number]
[2019-02-18] MEDS: Pravastatin Sodium 40 MG TAB PO SCH (20:50)
[2019-02-18] MEDS: guaiFENesin ER 600 MG TAB PO SCH (20:50)
[2019-02-18] MEDS: Tamsulosin HCl 0.4 MG CAP PO SCH (20:51)
[2019-02-18] MEDS: Rivaroxaban 10 MG TAB PO SCH (20:51)
[2019-02-19] MEDS: methylPREDNISolone Sod Succ 40 MG VIAL IVP SCH ×4 (00:04→17:56)
[2019-02-19] MEDS: Mometasone/Formoterol 120 PUFF INHALER INH SCH ×2 (06:36→18:47)
[2019-02-19] MEDS: Furosemide 20 MG TAB PO SCH (09:39)
[2019-02-19] MEDS: Potassium Chloride 10 MEQ TAB PO SCH (09:39)
[2019-02-19] MEDS: Digoxin 0.125 MG TAB PO SCH (09:39)
[2019-02-19] MEDS: guaiFENesin ER 600 MG TAB PO SCH ×2 (09:39→20:36)
[2019-02-19] MEDS: Aspirin 81 mg Enteric Coated Tablet PO SCH (09:39)
[2019-02-19] MEDS: Metoprolol Tartrate 25 MG TAB PO SCH ×2 (09:39→20:35)
--- NOTE | 2019-02-19 11:58 | PRG ---
DATE OF SERVICE: 02/19/2019 SUBJECTIVE: The patient is still struggling to breathe, requiring BiPAP intermittently. OBJECTIVE: VITAL SIGNS: Temperature is 97.8, pulse 81, blood pressure 124/66. HEENT: Remarkable for bitemporal wasting. NECK: No JVD. LUNGS: Poor air movement with coarse rhonchi. CARDIOVASCULAR: S1, S2. Regular. ABDOMEN: Soft. EXTREMITIES: No edema. ASSESSMENT: 1. End-stage chronic obstructive pulmonary disease, with exacerbation. 2. [id number] respiratory failure. PLAN: 1. Continue BiPAP intermittently as needed. 2. I have reviewed the medication list, agree with the scheduled nebulization treatments, the IV steroids, and the antibiotics. Prognosis is quite poor. Job ID: [id number]
--- NOTE | 2019-02-19 13:27 | PQF ---
ADAMYAQUELIN HEYDITHEOREESE [id number] [facility]- B10 [id number] CLINICAL DOCUMENTATION IMPROVEMENT CLARIFICATION FORM: ICD-10 Updated PLEASE DO AN ADDENDUM TO THE PROGRESS NOTE WITH ANY DOCUMENTATION UPDATES OR ADDITIONS AND CARRY THROUGH TO DC SUMMARY. THANK YOU. Date: 02/19 ATTN: DR. REESE SOLIZ Please exercise your independent, professional judgment in responding to the clarification form. Clinical indicators are provided on the bottom of this form for your review. Please check appropriate box(s): [ x] Protein Calorie Malnutrition: [ ] Mild [ ] Moderate [ ] Severe [ ] Underweight without malnutrition [ ] Other diagnosis [ ] Unable to determine In addition, please specify: Present on Admission (POA): [x ] Yes [ ] No [ ] Unable to determine CLINICAL INDICATORS - SIGNS / SYMPTOMS / LABS BMI: 19.4 ER PHYSICIAN DOCUMENTATION 02/17: COUSIN REPORTS PT HAS LOST APPROX 10 LBS IN 1 WK D/T INABILITY TO SWALLOW/ANOREXIA H&P 02/17 (EMILY): HIS DYSPHAGIA NEVER REALLY GOT BETTER & HE HAS HAD SIGNIFICANT WT LOSS SINCE HE GOT TO THE [facility]M PN 02/18 (NICOLE): PHY EXAM: PT APPEARS CACHETIC; PLAN: PT VERY SOB, NOT EATING MUCH PULM CONSULT 02/18 (BOLIVAR): [facility] L[facility] 10 LBS [facility]. HIS PO INTAKE HAS BEEN EXTREMELY POOR ACCORDING TO FAMILY; PHY EXAM: NEURO: HE IS OVERALL CACHECTIC & WEAK; IMPRESSION & PLAN: BIGGEST PROBLEM IS LACK OF PO INTAKE, LACK OF EXERCISE, & CACHEXIA PULM PN 02/19 (JEANETH): OBJ: HEENT: REMARKABLE FOR BITEMPORAL WASTING NUTRITION ASSMENT 02/18: -10% WEIGHT CHANGE IN 3.5 WKS NUTRITION DIAGNOSIS: MALNUTRITION EVIDENCED BY INADEQUATE OR NO PO INTAKE X1 -3 WEEKS, 10% WEIGHT LOSS IN THE LAST 3.5 WKS RISKS: END-STAGE COPD W/ ACUTE EXACERBATION DYSPHAGIA W/ REPORTED WEIGHT LOSS (H&P, PULM CON) REPORTED 10 LB WEIGHT LOSS IN 1 WEEK (ER REPORT, H&P) CACHEXIA (PULM CONSULT 02/18) TREATMENT: NUTRITION ASSESSMENT (02/18) NUTRITION SUPPLEMENT TID (02/18 - PRESENT) Moderate Malnutrition (in acute illness) Energy Intake: <75% of estimated energy requirement for > 7 days Weight Loss: 1-2%/1 week; 5%/ 1 month; 7.5%/3 months Other: mild body fat loss; mild muscle mass loss; mild fluid accumulation; Severe Malnutrition (in acute illness) Energy Intake: < 50% of estimated energy requirement for > 5 days Weight Loss: >1-2%/1 week; >5%/1 month; >7.5%/3 months Other: moderate body fat loss; moderate muscle mass loss; moderate- severe fluid accumulation; 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 Marivel (This form is maintained as a part of the permanent medical record) 2015 [employer]. All Rights Reserved Marivel Talavera RN, BSN [email or web address] Office: [phone] [facility]
--- NOTE | 2019-02-19 14:38 | PDOC.PN ---
- Subjective Encounter Start Date: 02/19/19 Encounter Start Time: 09:15 Subjective: pt up in bed very sob - Objective Resuscitation Status - Order Detail: 02/17/19 17:19 Resuscitation Status Routine Resuscitation Status: DNAR: NO Resuscitation Discussed with: Patient Vital Signs & Weight: Vital Signs (12 hours) Temp Pulse Resp BP Pulse Ox 02/19/19 14:07 79 19 94 L 02/19/19 11:47 98.2 F 02/19/19 09:39 80 02/19/19 09:23 80 24 H 93 L 02/19/19 07:53 95 02/19/19 07:06 97.8 F 02/19/19 06:36 97 21 H 99 02/19/19 06:20 99 02/19/19 06:19 77 21 H 99 02/19/19 04:00 97.6 F 82 18 128/69 96 02/19/19 03:51 75 22 H 96 Weight Admit Weight 126 lb 4 oz Weight 127 lb 6.4 oz Most Recent Monitor Data Heart Rate from ECG 80 NIBP 129/72 NIBP BP-Mean 91 Respiration from ECG 23 SpO2 87 I&O: 02/18/19 02/19/19 02/20/19 06:59 06:59 06:59 Intake Total 610 1050 Output Total 400 1140 Balance 210 -90 Result Diagrams: 02/18/19 05:56 02/18/19 05:56 Phys Exam - Physical Examination Neck: no nodes, no JVD, supple, full ROM rhonchi all over Cardiovascular: RRR, no significant murmur, no rub, gallop, irregular Gastrointestinal: soft, non-tender, no distention, positive bowel sounds Dx/Plan (1) Atrial fibrillation Code(s): I48.91 - UNSPECIFIED ATRIAL FIBRILLATION Status: Chronic Qualifiers: Atrial fibrillation type: chronic Qualified Code(s): I48.2 - Chronic atrial fibrillation (2) Diabetes mellitus type 2 in nonobese Code(s): E11.9 - TYPE 2 DIABETES MELLITUS WITHOUT COMPLICATIONS Status: Chronic (3) Dyslipidemia Code(s): E78.5 - HYPERLIPIDEMIA, UNSPECIFIED Status: Chronic (4) Acute and chronic respiratory failure Code(s): J96.20 - ACUTE AND CHR RESP FAILURE, UNSP W HYPOXIA OR HYPERCAPNIA Status: Resolved Qualifiers: Respiratory failure complication: hypoxia Qualified Code(s): J96.21 - Acute and chronic respiratory failure with hypoxia Comment: on nasal canula - Plan pt very sob, will get hopsice to evaluate pt -: pt not eating much and very weak. * . Review of Systems - Review of Systems Respiratory: Shortness of Breath. negative: Cough, Dry, Hemoptysis, SOB with Excertion, Pleuritic Pain, Sputum, Wheezing Gastrointestinal: negative: Nausea, Vomiting, Abdominal Pain, Diarrhea, Constipation, Melena, Hematochezia, Other Genitourinary: negative: Dysuria, Frequency, Incontinence, Hematuria, Retention , Other - Medications/Allergies Allergies/Adverse Reactions: Allergies Allergy/AdvReac Type Severity Reaction Status Date / Time bee pollen Allergy Verified 02/17/19 19:56 esomeprazole [From Nexium] Allergy Verified 02/17/19 19:56 niacin Allergy Verified 02/17/19 19:56 Medications: Current Medications Acetaminophen (Tylenol) 650 mg PO Q4H PRN PRN Reason: Headache/Fever/Mild Pain (1-3) Acetaminophen (Tylenol) 650 mg SD Q4H PRN PRN Reason: Headache/Fever/Mild Pain (1-3) Albuterol/Ipratropium (Duoneb) 3 ml NEB [id number] PRN PRN Reason: SOB &/or Wheezing Albuterol/Ipratropium (Duoneb) 3 ml EZPAP [id number] [facility] Last Admin: 02/19/19 14:07 Dose: 3 ml Aspirin (Ecotrin) 81 mg PO DAILY [facility] Last Admin: 02/19/19 09:39 Dose: 81 mg Digoxin (Lanoxin) 0.125 mg PO DAILY [facility] Last Admin: 02/19/19 09:39 Dose: 0.125 mg Furosemide (Lasix) 20 mg PO DAILY [facility] Last Admin: 02/19/19 09:39 Dose: 20 mg Guaifenesin (Mucinex) 600 mg PO Q12HR [facility] Last Admin: 02/19/19 09:39 Dose: 600 mg Guaifenesin/Dextromethorphan (Robitussin Dm) 15 ml PO Q4H PRN PRN Reason: Cough Ceftriaxone Sodium 1 gm/ (Sodium Chloride) 100 mls @ 200 mls/hr IVPB 1500 [facility] Last Admin: 02/18/19 15:16 Dose: 100 mls Diltiazem HCl 125 mg/Miscellaneous Medication 1 each/ Sodium Chloride 125 mls @ 5 mls/hr IVPB INF [facility]; Protocol Last Admin: 02/19/19 05:38 Dose: 125 mls Methylprednisolone Sodium Succinate (Solu-Medrol) 40 mg IVP Q6HR [facility] Last Admin: 02/19/19 13:02 Dose: 40 mg Metoprolol Tartrate (Lopressor) 12.5 mg PO BID [facility] Last Admin: 02/19/19 09:39 Dose: 12.5 mg Mometasone Furoate/Formoterol Fumar (Dulera 100 Mcg/5 Mcg Inhaler) 1 puff INH BID-RT [facility] Last Admin: 02/19/19 06:36 Dose: 1 puff Ondansetron HCl (Zofran Odt) 4 mg PO Q6H PRN PRN Reason: Nausea/Vomiting Ondansetron HCl (Zofran) 4 mg IVP Q6H PRN PRN Reason: Nausea/Vomiting Pantoprazole Sodium (Protonix) 40 mg PO DAILY [facility] Last Admin: 02/19/19 09:39 Dose: 40 mg Potassium Chloride (Klor-Con 10) 10 meq PO DAILY [facility] Last Admin: 02/19/19 09:39 Dose: 10 meq Pravastatin Sodium (Pravachol) 40 mg PO HS [facility] Last Admin: 02/18/19 20:50 Dose: 40 mg Rivaroxaban (Xarelto) 20 mg PO QPM [facility] Last Admin: 02/18/19 20:51 Dose: 20 mg Senna/Docusate Sodium (Senokot S) 2 tab PO BID PRN PRN Reason: Constipation Tamsulosin HCl (Flomax) 0.4 mg PO HS [facility] Last Admin: 02/18/19 20:51 Dose: 0.4 mg Zolpidem Tartrate (Ambien) 5 mg PO HSPRN PRN PRN Reason: Insomnia
[2019-02-19] MEDS: cefTRIAXone\\ROCEPHIN 1 GM in Sodium Chloride 0.9% 100 ML IVPB SCH (15:56)
[2019-02-19] MEDS: Pravastatin Sodium 40 MG TAB PO SCH (20:35)
[2019-02-19] MEDS: Tamsulosin HCl 0.4 MG CAP PO SCH (20:36)
[2019-02-19] MEDS: Rivaroxaban 10 MG TAB PO SCH (20:37)
[2019-02-20] MEDS: methylPREDNISolone Sod Succ 40 MG VIAL IVP SCH ×4 (00:28→19:03)
[2019-02-20] MEDS: guaiFENesin ER 600 MG TAB PO SCH (09:44)
[2019-02-20] MEDS: Aspirin 81 mg Enteric Coated Tablet PO SCH (09:44)
[2019-02-20] MEDS: Digoxin 0.125 MG TAB PO SCH (09:44)
[2019-02-20] MEDS: Furosemide 20 MG TAB PO SCH (09:44)
[2019-02-20] MEDS: Potassium Chloride 10 MEQ TAB PO SCH (09:44)
[2019-02-20] MEDS: Metoprolol Tartrate 25 MG TAB PO SCH (09:45)
[2019-02-20] MEDS: Mometasone/Formoterol 120 PUFF INHALER INH SCH ×2 (11:15→18:39)
--- NOTE | 2019-02-20 12:06 | PRG ---
DATE OF SERVICE: 02/20/2019 SUBJECTIVE: Mr. Quick continues to have severe problems with his breathing requiring intermittent BiPAP. OBJECTIVE: VITAL SIGNS: On exam, his temperature is 96.5, pulse 87, blood pressure 135/68, O2 saturation 95%. HEENT: Unremarkable except for coarse breath sounds from the back of his mouth. NECK: Audible upper airway rhonchi. LUNGS: Distant breath sounds. CARDIAC: S1, S2. Regular. ABDOMEN: Soft. EXTREMITIES: No edema. ASSESSMENT: Chronic obstructive pulmonary disease with exacerbation. PLAN: 1. I spent a considerable amount of time doing NT suctioning to get mucus out at the back of his throat which seems to have helped. 2. Continue IV steroids, aggressive nebulization treatments, and intermittent BiPAP as needed. 3. Continue mucolytic therapy. 4. Continue antibiotics. Job ID: [id number]
--- NOTE | 2019-02-20 15:11 | PDOC.PN ---
- Subjective Encounter Start Date: 02/20/19 Encounter Start Time: 15:09 Patient seen and examined, no new issues or complaints, all questions answered. - Objective Resuscitation Status - Order Detail: 02/17/19 17:19 Resuscitation Status Routine Resuscitation Status: DNAR: NO Resuscitation Discussed with: Patient Vital Signs & Weight: Vital Signs (12 hours) Temp Pulse Resp Pulse Ox 02/20/19 13:33 84 20 02/20/19 11:15 85 91 H 02/20/19 11:05 96.5 F L 02/20/19 10:13 82 24 H 96 02/20/19 09:44 83 02/20/19 08:31 83 24 H 96 02/20/19 07:38 94 L 02/20/19 07:21 98.0 F 02/20/19 04:03 75 23 H 98 02/20/19 03:39 98.0 F Weight Admit Weight 126 lb 4 oz Weight 127 lb 14.4 oz Most Recent Monitor Data Heart Rate from ECG 87 NIBP 135/68 NIBP BP-Mean 90 Respiration from ECG 25 SpO2 95 I&O: 02/19/19 02/20/19 02/21/19 06:59 06:59 06:59 Intake Total 1050 1110 Output Total 1140 930 200 Balance -90 180 -200 Result Diagrams: 02/18/19 05:56 02/18/19 05:56 Phys Exam - Physical Examination Constitutional: NAD HEENT: PERRLA, moist MMs, sclera anicteric Neck: no nodes, no JVD, supple mild respiratory distress coarse breath sounds systolic murmur tachycardia Gastrointestinal: soft, non-tender Musculoskeletal: pulses present, edema present (trace) Dx/Plan (1) COPD (chronic obstructive pulmonary disease) Status: Acute Qualifiers: COPD type: COPD with acute exacerbation Qualified Code(s): J44.1 - Chronic obstructive pulmonary disease with (acute) exacerbation (2) Lung mass Code(s): R91.8 - OTHER NONSPECIFIC ABNORMAL FINDING OF LUNG FIELD Status: Acute (3) CAD (coronary artery disease) Code(s): I25.10 - ATHSCL HEART DISEASE OF [place] CORONARY ARTERY W/O ANG PCTRS Status: Chronic Qualifiers: Coronary Disease-Associated Artery/Lesion type: [place] artery [place] vs. transplanted heart: [place] heart Associated angina: without angina Qualified Code(s): I25.10 - Atherosclerotic heart disease of [place] coronary artery without angina pectoris (4) Diabetes mellitus type 2 in nonobese Code(s): E11.9 - TYPE 2 DIABETES MELLITUS WITHOUT COMPLICATIONS Status: Chronic (5) Dyslipidemia Code(s): E78.5 - HYPERLIPIDEMIA, UNSPECIFIED Status: Chronic (6) Pulmonary asbestosis Code(s): J61 - PNEUMOCONIOSIS DUE TO ASBESTOS AND OTHER MINERAL FIBERS Status : Chronic (7) Acute and chronic respiratory failure Code(s): J96.20 - ACUTE AND CHR RESP FAILURE, UNSP W HYPOXIA OR HYPERCAPNIA Status: Resolved Qualifiers: Respiratory failure complication: hypoxia Qualified Code(s): J96.21 - Acute and chronic respiratory failure with hypoxia Comment: on nasal canula - Plan * pending hospice * no changes in plan of care * DC once hospice care arranged * case and plan d/w patient's family at length, they understood and agreed with this plan.
--- NOTE | 2019-02-20 15:58 | PDOC.EVN ---
Event Note - Event Note Event Note: ID #[id number]
[2019-02-20] MEDS: cefTRIAXone\\ROCEPHIN 1 GM in Sodium Chloride 0.9% 100 ML IVPB SCH (16:01)
[2019-02-20 16:49] VITALS: BP 122/64
--- NOTE | 2019-02-20 16:58 | DIS ---
DATE OF ADMISSION: 02/17/2019 DATE OF DISCHARGE: 02/20/2019 ADMITTING DIAGNOSES: 1. Chronic obstructive pulmonary disease. 2. Shortness of breath. 3. Chest pain. 4. Hyperlipidemia. 5. Benign prostatic hypertrophy. 6. Diabetes mellitus type 2. 7. Paroxysmal atrial fibrillation. 8. Chronic kidney disease 2. 9. Coronary artery disease. DISCHARGE DIAGNOSES: 1. Severe end-stage chronic obstructive pulmonary disease. 2. Benign prostatic hypertrophy. 3. Diabetes mellitus type 2. 4. Hypertension. 5. History of atrial fibrillation. 6. Coronary artery disease. 7. Chronic kidney disease stage 2. HOSPITAL COURSE: A 78-year-old male, presenting to hospital with known severe COPD, had recurrent admissions to the facility, was treated with breathing treatments and oxygen therapy in the ICU. 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 After 3-4 days of hospital admission and review of his medical history and chart, case was discussed with his family as well as and the patient at length. Decision was made that the patient's condition was significantly worsening and there is no possible improvement in outcome at this point in time. Family at that point in association with the patient decided to make the patient hospice. The patient had hospice services arranged. The patient wished to be discharged to hospice for further management and care. The patient's condition upon the time of discharge was stable. Prognosis was very poor. Case and plan discussed with the patient's family at length. They understood and agreed with this planned disposition to hospice. FOLLOWUP VISITS: Follow up with PCP and hospice medical van driver for further management and care. MEDICATIONS: See MAR. ACTIVITY: As tolerated with assistance as needed. DIET: Low-fat, low-calorie, high-fiber diet. CONDITION: Stable. PROGNOSIS: Poor. DISPOSITION: Case and plan discussed with patient at length and they understood and agreed with this plan. Job ID: [id number]
[2019-02-20] MEDS ORDERED: Lorazepam 2 MG/ML VIAL SLOW IVP SCH (21:00)
[2019-02-20 21:04] VITALS: TEMP 98.8
== END 2019-02-20 21:17 | disposition hospice, inpatient (51) | DRG 189 ==
LOC: ERS 14:06 → IMCU/EMU 18:18
PROVIDERS: ADMIT Internal Medicine; ATTEND Internal Medicine
PROC: 5A09457 Assistance with Respiratory Ventilation, 24-96 Consecutive Hours, Continuous Positive Airway Pressure (ICD-10-PCS; principal; 2019-02-17)
DX: J96.21 Acute and chronic respiratory failure with hypoxia (principal); J44.1 Chronic obstructive pulmonary disease with (acute) exacerbation; E46 Unspecified protein-calorie malnutrition; Z68.1 Body mass index [BMI] 19.9 or less, adult; Z66 Do not resuscitate; J61 Pneumoconiosis due to asbestos and other mineral fibers; N40.0 Benign prostatic hyperplasia without lower urinary tract symptoms; D63.1 Anemia in chronic kidney disease; E11.22 Type 2 diabetes mellitus with diabetic chronic kidney disease; I48.91 Unspecified atrial fibrillation; I12.9 Hypertensive chronic kidney disease with stage 1 through stage 4 chronic kidney disease, or unspecified chronic kidney disease; N18.2 Chronic kidney disease, stage 2 (mild); R13.10 Dysphagia, unspecified; E78.5 Hyperlipidemia, unspecified; I25.10 Atherosclerotic heart disease of native coronary artery without angina pectoris; Z79.899 Other long term (current) drug therapy; Z87.891 Personal history of nicotine dependence; Z88.8 Allergy status to other drugs, medicaments and biological substances; Z91.030 Bee allergy status
CPT/HCPCS: 36415; 71045; 80048; 80053; 81003; 81015; 82553; 83605; 83735; 83880; 84484; 85025; 87040; 93005; 94640; 94660; 96360; 96361; 96365; 96367; A4353; J0696; J2060; J2920; J3475; J3490; J7620